=== PATIENT | female | born 1960 | race Caucasian/White ===

== ENCOUNTER → 2017-08-24 | Day surgery (SDC) | payer SELFPAY ==
[2017-08-24 07:24] VITALS: BP 121/78; PULSE 84; RESP 18; TEMP 97.8; BMI 34.1
--- NOTE | 2017-08-24 09:20 | PCN ---
PROCEDURE NOTE The patient is a 57-year-old white female who presented for a breast examination related to an abnormal left-sided mammogram. On physical examination of the breast, no supraclavicular, cervical, axillary adenopathy of concern was noted. Multi-positional exam of each breast did not reveal any suspicious masses or nodules of concern. No nipple discharge or changes were noted. The patient on mammogram was noted to have 2 sites of indeterminate microcalcifications in the central upper left middle 1/3 of the breast. The patient was recommended to undergo mammotome core biopsy of the left breast at 2 sites if possible. PROCEDURE: The patient was taken to the mammotome unit and the area of concern in the left breast was identified. The anterior site was first identified and approached via a lateral to medial approach. The needle was driven to the correct coordinates. This was done after the breast had been prepped using Betadine, 1% lidocaine was used to anesthetize the area of concern and a syringe of lidocaine was attached to the biopsy unit and automated delivery of lidocaine as the procedure was performed. The biopsy device was a vacuum-assisted biopsy device. Pre-fire films were obtained as well as post-fire films. The multiple specimens were obtained and radiograph of the specimen revealed the area of microcalcification was present. A secure gema was placed and radiograph revealed that the secure gema was in the appropriate location. Following this, a repeat radiograph of the breast while on the mammotome table did not reveal the second group of microcalcifications. There was some thought that possibly some blushing from the first biopsy small hematoma may be obscuring the area. The site was reviewed with Radiology and the feeling was that the most worrisome site had been sampled and that the second site would be followed conservatively. If the first site were to be of concern, the needle localization would be performed and both sides could be removed. The patient tolerated the procedure in stable condition. Specimen was sent to pathology and the patient will follow up with Dr. Logan in approximately one week. MMODL / IJN: [id number] /
--- NOTE | 2017-08-24 11:25 | MM ---
EXAMINATION TYPE: MG stereo VAD BX LT DATE OF EXAM: 08/24/2017 COMPARISON: NONE CLINICAL HISTORY: Abnormal mammogram TECHNIQUE: Stereotactic guided core biopsy of left breast. FINDINGS: The procedure of stereotactic guided core biopsy was explained to the patient. Benefits, a lternatives, and risks were discussed. An informed consent was then obtained. [facility] was chosen. Short[facility] pathway was chosen. I performed the localizat ion, then surgeon, Dr. Travis Kemp performed the remainder of the procedure. A vacuum assisted biopsy gun was used to obtain multiple core samples. The patient tolerated the procedure well without any immediate complication. The patient was kept in the radiology department for short stay after the procedure and then discharged home in stable condi tion. Targeted calcifications are identified in specimen mammogram. Post biopsy mammogram shows the clip to appear in satisfactory position relative to the targeted area of concern on the preprocedure images. IMPRESSION: SUCCESSFUL, UNCOMPLICATED STEREOTACTIC GUIDED CORE BIOPSY OF AREA OF CONCERN IN THE left BREAST, FULL PATHOLOGY RESULTS TO FOLLOW. The second smaller cluster of calcifications could not be identified f or stereotactic localization on today's exam. Discussed with the referring surgeon. Either 6 month fo llow-up or needle localization could be performed as clinically warranted.
== END ==
LOC: RADMAMWWP 07:03
PROVIDERS: ATTEND Surgery
DX: D05.12 Intraductal carcinoma in situ of left breast (principal); R92.0 Mammographic microcalcification found on diagnostic imaging of breast
CPT/HCPCS: 88305; 88342; 88341; 19081; A4648; J2001

== ENCOUNTER 2017-10-08 17:43 | Inpatient (IN) | payer OTHER ==
[2017-10-08] MEDS ORDERED: ACETAMINOPHEN TAB 500 MG TAB PO STA (18:02)
--- NOTE | 2017-10-08 18:17 | ED ---
General Adult HPI - General Chief complaint: Fever Stated complaint: POST OP FEVER, SWELLING, PAIN Time Seen by Provider: 10/08/17 17:52 Source: patient Mode of arrival: ambulatory Limitations: no limitations - History of Present Illness Initial comments: 57-year-old female patient presented to the emergency department today with complaints of left breast pain, redness, and swelling. Patient underwent left breast lumpectomy with sentinel node biopsy on 09/19/[address] Logan. 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 States that she has not felt well since the procedure, reports feeling general weakness and malaise. She states that she has had intense pain in the left nipple since the surgery, but last evening started to have increased pain to the left side of the breast. She states that she continued feeling unwell today with worsening pain to the breast, states she felt feverish, and was also complaining of what sounds like rigors. She states that after taking a shower she had drainage from the incision site. Patient states upon further inspection she did find that the breast was very inflamed, hard to touch, and draining bloody drainage. She reports taking an ibuprofen for discomfort. Patient denies any recent rash, shortness breath, abdominal pain, nausea, vomiting, diarrhea, constipation, back pain, numbness, tingling, dizziness, hematuria, dysuria, urinary urgency, urinary frequency, headache, visual changes, or any other complaints. - Related Data Home Medications Medication Instructions Recorded Confirmed Doxepin HCl [SINEquan] 150 mg PO HS 08/20/17 10/08/17 HYDROcodone/APAP 10-325MG [[place] 1 tab PO TID 08/20/17 10/08/17 10-325] ALPRAZolam [Xanax] 0.25 mg PO BID PRN 09/13/17 10/08/17 Ibuprofen [Motrin] 800 mg PO TID PRN 10/08/17 10/08/17 Allergies Allergy/AdvReac Type Severity Reaction Status Date / Time No Known Allergies Allergy Verified 10/08/17 18:04 Review of Systems ROS Statement: Those systems with pertinent positive or pertinent negative responses have been documented in the HPI. ROS Other: All systems not noted in ROS Statement are negative. Past Medical History Past Medical History: Cancer, Fibromyalgia, Osteoarthritis (OA), Skin Disorder Additional Past Medical History / Comment(s): psoriasis; insomnia History of Any Multi-Drug Resistant Organisms: None Reported Past Surgical History: Breast Surgery, Section, Orthopedic Surgery Additional Past Surgical History / Comment(s): Gastric sleeve; colonoscopy; D&C ; plantar fasciitis surg. Past Anesthesia/Blood Transfusion Reactions: Motion Sickness Past Psychological History: Anxiety Smoking Status: Former smoker Past Alcohol Use History: None Reported Past Drug Use History: None Reported - Past Family History Father Family Medical History: Cancer Brother(s) Family Medical History: Cancer General Exam Limitations: no limitations General appearance: alert, in no apparent distress, other (Social well-developed , well-nourished adult female patient in no acute distress. Vital signs upon presentation were to rupture 101.1F oral, pulse 116, respirations 18, blood pressure 118/69, pulse ox 95% on room air.) Eye exam: Present: normal appearance, PERRL, EOMI. Absent: scleral icterus, conjunctival injection, periorbital swelling ENT exam: Present: normal exam, normal oropharynx, mucous membranes moist, TM's normal bilaterally Neck exam: Present: normal inspection. Absent: tenderness, meningismus, lymphadenopathy Respiratory exam: Present: normal lung sounds bilaterally. Absent: respiratory distress, wheezes, rales, rhonchi, stridor Cardiovascular Exam: Present: normal rhythm, tachycardia, normal heart sounds. Absent: systolic murmur, diastolic murmur, rubs, gallop, clicks GI/Abdominal exam: Present: soft, normal bowel sounds. Absent: distended, tenderness, guarding, rebound, rigid Back exam: Present: normal inspection Neurological exam: Present: alert, oriented X3, CN II-XII intact Psychiatric exam: Present: normal affect, normal mood Skin exam: Present: warm, dry, intact, normal color. Absent: rash Expanded 1 - Left breast exhibits a large area of erythema, induration, and swelling at the 3 O'clock position. Evidence of healed surgical incision sites, however there are 2 areas of blackened tissue. The inferior area is draining clear yellow fluid. There is no evidence of axillary lymphadenopathy. Course Vital Signs 10/08/17 10/08/17 10/08/17 17:44 18:14 18:15 Temperature 100.8 F H 101.1 F H Pulse Rate 116 H Pulse Rate [ 94 Right Pulse Oximetery] Respiratory 18 18 Rate Blood Pressure 118/69 Blood Pressure 124/70 [Right Arm] O2 Sat by Pulse 95 99 Oximetry 10/08/17 10/08/17 10/08/17 18:30 18:45 19:12 Temperature Pulse Rate 101 H Pulse Rate [ 96 101 H Right Pulse Oximetery] Respiratory 18 18 18 Rate Blood Pressure 124/73 Blood Pressure 120/72 126/76 [Right Arm] O2 Sat by Pulse 98 99 95 Oximetry 10/08/17 10/08/17 10/08/17 19:20 19:27 20:05 Temperature 98.3 F Pulse Rate Pulse Rate [ 102 H 94 Right Pulse Oximetery] Respiratory 18 16 Rate Blood Pressure Blood Pressure 120/72 106/60 [Right Arm] O2 Sat by Pulse 95 94 L Oximetry Medical Decision Making - Medical Decision Making 57-year-old female patient presented to the emergency department today for evaluation of left breast swelling, pain, and drainage. Patient is status post left breast lumpectomy on 09/19/[address] Logan. Physical examination did reveal erythema, induration, and drainage to the left breast around the 3 O' Clock position. Patient was febrile and tachycardic upon presentation. Labs were reviewed and did show an elevated WBC count at 19.5, Neutrophils 17.4, BUN : 25, Creatinine: 1.40. Urinalysis did show cloudy appearance with 1+ protein, trace ketones, 1+ bilirubin, large leukocyte esterase, 25 white blood cells, 7 squamous epithelial cells, 25 hyaline casts, rare urine mucus. Influenza testing was negative. We did obtain a chest x-ray which was clear for any pulmonary infiltrates. Ultrasound of the left breast did show a large fluid collection measuring approximately 11 cm x 2.[address] Toussaint was in to evaluate the patient. He did speak to Dr. Cook who agrees to admit patient to her service. We will start the patient on Rocephin and vancomycin. We will provide pain management for her. All results have been discussed with the patient and she agrees with this plan. - Lab Data Result diagrams: 10/08/17 18:30 10/08/17 18:30 Lab Results 10/08/17 10/08/17 10/08/17 Range/Units 18:30 18:30 18:30 WBC 19.5 H (3.8-10.6) k/uL RBC 4.34 (3.80-5.40) m/uL Hgb 11.4 (11.4-16.0) gm/dL Hct 35.2 (34.0-46.0) % MCV 81.0 (80.0-100.0) fL MCH 26.3 (25.0-35.0) pg MCHC 32.5 (31.0-37.0) g/dL RDW 16.3 H (11.5-15.5) % Plt Count 332 (150-450) k/uL Neutrophils % 89 % Lymphocytes % 5 % Monocytes % 4 % Eosinophils % 0 % Basophils % 0 % Neutrophils # 17.4 H (1.3-7.7) k/uL Lymphocytes # 1.0 (1.0-4.8) k/uL Monocytes # 0.8 (0-1.0) k/uL Eosinophils # 0.0 (0-0.7) k/uL Basophils # 0.0 (0-0.2) k/uL Anisocytosis Slight PT (9.0-12.0) sec INR (<1.2) APTT (22.0-30.0) sec Sodium 141 (137-145) mmol/L Potassium 4.0 (3.5-5.1) mmol/L Chloride 107 (98-107) mmol/L Carbon Dioxide 24 (22-30) mmol/L Anion Gap 10 mmol/L BUN 25 H (7-17) mg/dL Creatinine 1.40 H (0.52-1.04) mg/dL Est GFR (MDRD) Af Amer 47 (>60 ml/min/1.73 sqM) Est GFR (MDRD) Non-Af 39 (>60 ml/min/1.73 sqM) Glucose 133 H (74-99) mg/dL Plasma Lactic Acid Enrique 0.9 (0.7-2.0) mmol/L Calcium 9.5 (8.4-10.2) mg/dL Total Bilirubin 0.6 (0.2-1.3) mg/dL AST 21 (14-36) U/L ALT 38 (9-52) U/L Alkaline Phosphatase 71 (38-126) U/L Total Protein 6.1 L (6.3-8.2) g/dL Albumin 3.6 (3.5-5.0) g/dL Urine Color Urine Appearance (Clear) Urine pH (5.0-8.0) Ur Specific [place] (1.001-1.035) Urine Protein (Negative) Urine Glucose (UA) (Negative) Urine Ketones (Negative) Urine Blood (Negative) Urine Nitrite (Negative) Urine Bilirubin (Negative) Urine Urobilinogen (<2.0) mg/dL Ur Leukocyte Esterase (Negative) Urine WBC (0-5) /hpf Ur Squamous Epith Cells (0-4) /hpf Hyaline Casts (0-2) /lpf Urine Mucus (None) /hpf Influenza Type A RNA (Not Detectd) Influenza Type B (PCR) (Not Detectd) 10/08/17 10/08/17 10/08/17 Range/Units 18:30 18:30 19:50 WBC (3.8-10.6) k/uL RBC (3.80-5.40) m/uL Hgb (11.4-16.0) gm/dL Hct (34.0-46.0) % MCV (80.0-100.0) fL MCH (25.0-35.0) pg MCHC (31.0-37.0) g/dL RDW (11.5-15.5) % Plt Count (150-450) k/uL Neutrophils % % Lymphocytes % % Monocytes % % Eosinophils % % Basophils % % Neutrophils # (1.3-7.7) k/uL Lymphocytes # (1.0-4.8) k/uL Monocytes # (0-1.0) k/uL Eosinophils # (0-0.7) k/uL Basophils # (0-0.2) k/uL Anisocytosis PT 10.7 (9.0-12.0) sec INR 1.1 (<1.2) APTT 22.8 (22.0-30.0) sec Sodium (137-145) mmol/L Potassium (3.5-5.1) mmol/L Chloride (98-107) mmol/L Carbon Dioxide (22-30) mmol/L Anion Gap mmol/L BUN (7-17) mg/dL Creatinine (0.52-1.04) mg/dL Est GFR (MDRD) Af Amer (>60 ml/min/1.73 sqM) Est GFR (MDRD) Non-Af (>60 ml/min/1.73 sqM) Glucose (74-99) mg/dL Plasma Lactic Acid Enrique (0.7-2.0) mmol/L Calcium (8.4-10.2) mg/dL Total Bilirubin (0.2-1.3) mg/dL AST (14-36) U/L ALT (9-52) U/L Alkaline Phosphatase (38-126) U/L Total Protein (6.3-8.2) g/dL Albumin (3.5-5.0) g/dL Urine Color Yellow Urine Appearance Cloudy H (Clear) Urine pH 5.5 (5.0-8.0) Ur Specific [place] 1.026 (1.001-1.035) Urine Protein 1+ H (Negative) Urine Glucose (UA) Negative (Negative) Urine Ketones Trace H (Negative) Urine Blood Negative (Negative) Urine Nitrite Negative (Negative) Urine Bilirubin 1+ H (Negative) Urine Urobilinogen 2.0 (<2.0) mg/dL Ur Leukocyte Esterase Large H (Negative) Urine WBC 25 H (0-5) /hpf Ur Squamous Epith Cells 7 H (0-4) /hpf Hyaline Casts 25 H (0-2) /lpf Urine Mucus Rare H (None) /hpf Influenza Type A RNA Not Detected (Not Detectd) Influenza Type B (PCR) Not Detected (Not Detectd) Disposition Clinical Impression: Left breast abscess Disposition: ADMITTED IP TO THIS HOSP Condition: Serious Referrals: Bill Mayo MD [Primary Care Provider] - 1-2 days Decision to Admit Reason: Admit from EC Decision Date: 10/08/17 Decision Time: 20:32
[2017-10-08] MEDS: HYDROmorphone 1 MG/ML 1 ML SYRINGE IVP STA (18:33)
[2017-10-08 18:49] LABS: Anisocytosis Slight; Basophils % (A) 0 %; Eosinophils % (A) 0 %; HCT 35.2 % (34.0-46.0); HGB 11.4 gm/dL (11.4-16.0); Lymphocytes % (A) 5 %; MCH 26.3 pg (25.0-35.0); MCHC 32.5 g/dL (31.0-37.0); Mean Platelet Volume 7.6; Monocytes # (A) 0.8 k/uL (0-1.0); Monocytes % (A) 4 %; Neutrophils # (A) 17.4 k/uL (1.3-7.7); Neutrophils % (A) 89 %; Platelet Count 332 k/uL (150-450); RBC 4.34 m/uL (3.80-5.40); RDW 16.3 % (11.5-15.5); WBC 19.5 k/uL (3.8-10.6)
[2017-10-08 18:58] LABS: Albumin 3.6 g/dL (3.5-5.0); Calcium 9.5 mg/dL (8.4-10.2); INR 1.1 (<1.2); Partial Thromboplastin Time 22.8 sec (22.0-30.0); Prothrombin Time 10.7 sec (9.0-12.0); Total Bilirubin 0.6 mg/dL (0.2-1.3); Total Protein 6.1 g/dL (6.3-8.2)
--- NOTE | 2017-10-08 18:59 | USB ---
EXAMINATION TYPE: US breast limited LT DATE OF EXAM: 10/08/2017 COMPARISON: NONE CLINICAL HISTORY: Pain, erythema, swelling post surgery. Pt states fever, red, firm, painful left lilli ast upper/outer quadrant post needle loc, lumpectomy on 09/19/17 Fluid collection left breast (12:00-3:00)= 11.3 x 2.9 cm IMPRESSION: Large irregular fluid collection is demonstrated. Possibilities include hematoma seroma or abscess.
--- NOTE | 2017-10-08 20:13 | XR ---
EXAMINATION TYPE: XR chest 2V DATE OF EXAM: 10/08/2017 COMPARISON: None HISTORY: Chest pain TECHNIQUE: Frontal and lateral views of the chest are obtained. FINDINGS: Heart and mediastinum are normal. Lungs are clear. There are clips over the left breast. T here are chest leads. Bony thorax is intact. IMPRESSION: Normal chest
[2017-10-08] MEDS ORDERED: ONDANSETRON 4 MG/2 ML VIAL IVP PRN (20:16)
[2017-10-08] MEDS ORDERED: ACETAMINOPHEN TAB 325 MG TAB PO PRN (20:16)
[2017-10-08] MEDS ORDERED: NALOXONE 0.4 MG/ML 1 ML VIAL IV PRN (20:16)
[2017-10-08] MEDS ORDERED: VANCOMYCIN IV PER PHARMACY 1 EACH MISC MISCELLANE PRN (20:21)
[2017-10-08 20:24] LABS: Appearance,Urine Cloudy (Clear); Bilirubin,Urine 1+ (Negative); Blood,Urine Negative (Negative); Color,Urine Yellow; Glucose,Urine (UA) Negative (Negative); Hyaline Casts,Urine 25 /lpf (0-2); Ketones,Urine Trace (Negative); Leukocyte Esterase,Urine Large (Negative); Mucus,Urine Rare /hpf; Nitrite,Urine Negative (Negative); PH, Urine 5.5 (5.0-8.0); Protein,Urine 1+ (Negative); Specific Gravity,Urine 1.026 (1.001-1.035); Squamous Epithelial Cell,Urine 7 /hpf (0-4); WBC,Urine 25 /hpf (0-5)
[2017-10-08] MEDS ORDERED: cefTRIAXone IN SWFI 1,000 MG/10 ML SYRINGE IVP ONE (20:30)
[2017-10-08] MEDS ORDERED: VANCOMYCIN 1,500 MG in SODIUM CHLORIDE 0.9% 250 ML IVPB ONE (20:45)
[2017-10-08] MEDS: SODIUM CHLORIDE 0.9% 1,000 ML IV SCH (20:49)
[2017-10-08 22:21] VITALS: BMI 34.6
[2017-10-08] MEDS: HYDROmorphone 1 MG/ML 1 ML SYRINGE IVP PRN (22:29)
[2017-10-09] MEDS: HYDROmorphone 1 MG/ML 1 ML SYRINGE IVP PRN ×3 (03:36→11:01)
[2017-10-09] MEDS: SODIUM CHLORIDE 0.9% 1,000 ML IV SCH ×2 (08:06→17:29)
[2017-10-09] MEDS: cefTRIAXone IN SWFI 1,000 MG/10 ML SYRINGE IVP SCH (08:22)
[2017-10-09 08:56] LABS: Basophils % (A) 0 %; Eosinophils # (A) 0.3 k/uL (0-0.7); Eosinophils % (A) 2 %; HGB 10.3 gm/dL (11.4-16.0); Lymphocytes % (A) 7 %; MCH 26.1 pg (25.0-35.0); MCHC 31.1 g/dL (31.0-37.0); MCV 83.7 fL (80.0-100.0); Mean Platelet Volume 6.7; Monocytes # (A) 0.6 k/uL (0-1.0); Monocytes % (A) 4 %; Neutrophils # (A) 11.3 k/uL (1.3-7.7); Neutrophils % (A) 85 %; Platelet Count 291 k/uL (150-450); RBC 3.95 m/uL (3.80-5.40); WBC 13.3 k/uL (3.8-10.6)
[2017-10-09] MEDS ORDERED: VANCOMYCIN 1,500 MG in SODIUM CHLORIDE 0.9% 250 ML IVPB SCH (09:00)
[2017-10-09 09:17] LABS: Anion Gap 6 mmol/L; Blood Urea Nitrogen 21 mg/dL (7-17); Calcium 9.3 mg/dL (8.4-10.2); Carbon Dioxide 28 mmol/L (22-30); Chloride 108 mmol/L (98-107); Glucose 102 mg/dL (74-99); Potassium 4.2 mmol/L (3.5-5.1); Sodium 142 mmol/L (137-145)
--- NOTE | 2017-10-09 09:40 | P.GSHP ---
History of Present Illness H&P Date: 10/09/17 Chief Complaint: Breast abscess CHIEF COMPLAINT: Left breast abscess HISTORY OF PRESENT ILLNESS: The patient is a 57-year-old female who presents with fevers, rigors, swelling along the left breast status post left breast biopsy 09/19/2017. She has increased pain and tenderness along the left breast including swelling. Her temperatures were over 101 upon presentation to the ER. She still reports left breast discomfort including redness. PAST MEDICAL HISTORY: Please see list. PAST SURGICAL HISTORY: Please see list. MEDICATIONS: Please see list. ALLERGIES: Please see list. SOCIAL HISTORY: No illicit drug use FAMILY HISTORY: No reports of Crohn disease or ulcerative colitis. REVIEW OF ORGAN SYSTEMS: CONSTITUTIONAL: Has fever or chills. Denies recent weight loss or weight gain. HEENT: Denies any trouble with vision, hearing or nosebleeds. No difficulty swallowing. LYMPHATIC: The patient denies any lumps and bumps around the neck. ENDOCRINE: Denies any thyroid disorders. Denies any blood sugar glucose intolerance. RESPIRATORY: Denies pneumonia. Denies any troubles with breathing or dyspnea on exertion. CARDIOVASCULAR: Denies any chest pain, palpitations, or recent heart attacks. GASTROINTESTINAL: Denies heart burn, constipation or bright red blood per rectum. GENITOURINARY: Denies any blood in urine or increased urinary frequency. MUSCULOSKELETAL: Has back pain, stiffness, joint arthritis. NEUROLOGIC: Denies any numbness or tingling along the distal extremities. No seizure disorders or headaches. PSYCHIATRIC: Denies depression or suidical ideation. She has fibromyalgia. HEMATOLOGIC: Denies any abnormal bleeding or bruising. BREASTS: Has breast lumps, pain. PHYSICAL EXAM: GENERAL: Well developed and in no acute distress. Pleasant. HEENT: No sclera icterus. Extraocular movements grossly intact. Moist buccal mucosa. Head is atraumatic, normocephalic. Hears conversational speech. No nasal drainage. NECK: Supple without lymphadenopathy. No JV distention. CHEST: Non-labored respirations and equal bilateral excursions. CARDIOVASCULAR: Regular rate and rhythm. Palpable 2+ radial pulses. ABDOMEN: Soft, nontender. Nondistended. MUSCULOSKELETAL: No clubbing, cyanosis or edema. NEUROLOGIC: No focal or lateralizing signs. PSYCH: Appropriate affect. Alert and oriented to person, place and time. BREAST: Moderate swelling and erythema along the left breast. 2 cm necrosis along the left breast at 4 o'clock position. SKIN: Good skin turgor. Well perfused. ASSESSMENT: 1. Left breast abscess. 2. Sepsis. PLAN: 1. Sepsis protocol. 2. Recommend drainage of left breast abscess. 3. Broad-spectrum antibiotics. 4. Infectious disease consultation. 5. Inpatient admission for sepsis. Past Medical History Past Medical History: Cancer, Fibromyalgia, Osteoarthritis (OA), Skin Disorder Additional Past Medical History / Comment(s): psoriasis; insomnia History of Any Multi-Drug Resistant Organisms: None Reported Past Surgical History: Breast Surgery, Section, Orthopedic Surgery Additional Past Surgical History / Comment(s): Gastric sleeve; colonoscopy; D&C ; plantar fasciitis surg. Past Anesthesia/Blood Transfusion Reactions: Motion Sickness Past Psychological History: Anxiety Smoking Status: Former smoker Past Alcohol Use History: None Reported Additional Past Alcohol Use History / Comment(s): quit smoking in 1994; smoked 1ppd Past Drug Use History: None Reported - Past Family History Father Family Medical History: Cancer Brother(s) Family Medical History: Cancer Medications and Allergies Home Medications Medication Instructions Recorded Confirmed Type Doxepin HCl [SINEquan] 150 mg PO HS 08/20/17 10/08/17 History HYDROcodone/APAP 10-325MG [[place] 1 tab PO TID 08/20/17 10/08/17 History 10-325] ALPRAZolam [Xanax] 0.25 mg PO BID PRN 09/13/17 10/08/17 History Ibuprofen [Motrin] 800 mg PO TID PRN 10/08/17 10/08/17 History Allergies Allergy/AdvReac Type Severity Reaction Status Date / Time No Known Allergies Allergy Verified 10/08/17 18:04 Surgical - Exam Vital Signs Temp Pulse Resp BP Pulse Ox 100.8 F H 116 H 18 118/69 95 10/08/17 17:44 10/08/17 17:44 10/08/17 17:44 10/08/17 17:44 10/08/17 17:44 Results - Labs 10/09/17 08:25 10/09/17 08:25 Abnormal Lab Results - Last 24 Hours (Table) 10/08/17 10/08/17 10/08/17 Range/Units 18:30 18:30 19:50 WBC 19.5 H (3.8-10.6) k/uL Hgb (11.4-16.0) gm/dL Hct (34.0-46.0) % RDW 16.3 H (11.5-15.5) % Neutrophils # 17.4 H (1.3-7.7) k/uL Chloride (98-107) mmol/L BUN 25 H (7-17) mg/dL Creatinine 1.40 H (0.52-1.04) mg/dL Glucose 133 H (74-99) mg/dL Total Protein 6.1 L (6.3-8.2) g/dL Urine Appearance Cloudy H (Clear) Urine Protein 1+ H (Negative) Urine Ketones Trace H (Negative) Urine Bilirubin 1+ H (Negative) Ur Leukocyte Esterase Large H (Negative) Urine WBC 25 H (0-5) /hpf Ur Squamous Epith Cells 7 H (0-4) /hpf Hyaline Casts 25 H (0-2) /lpf Urine Mucus Rare H (None) /hpf 10/09/17 10/09/17 Range/Units 08:25 08:25 WBC 13.3 H (3.8-10.6) k/uL Hgb 10.3 L (11.4-16.0) gm/dL Hct 33.0 L (34.0-46.0) % RDW (11.5-15.5) % Neutrophils # 11.3 H (1.3-7.7) k/uL Chloride 108 H (98-107) mmol/L BUN 21 H (7-17) mg/dL Creatinine (0.52-1.04) mg/dL Glucose 102 H (74-99) mg/dL Total Protein (6.3-8.2) g/dL Urine Appearance (Clear) Urine Protein (Negative) Urine Ketones (Negative) Urine Bilirubin (Negative) Ur Leukocyte Esterase (Negative) Urine WBC (0-5) /hpf Ur Squamous Epith Cells (0-4) /hpf Hyaline Casts (0-2) /lpf Urine Mucus (None) /hpf Microbiology - Last 24 Hours (Table) 10/08/17 18:30 Gram Stain - Preliminary Breast - Left Wound Culture - Preliminary 10/08/17 19:50 Urine Culture - Preliminary Urine,Voided Diabetes panel 10/08/17 10/09/17 Range/Units 18:30 08:25 Sodium 141 142 (137-145) mmol/L Potassium 4.0 4.2 (3.5-5.1) mmol/L Chloride 107 108 H (98-107) mmol/L Carbon Dioxide 24 28 (22-30) mmol/L BUN 25 H 21 H (7-17) mg/dL Creatinine 1.40 H 0.83 (0.52-1.04) mg/dL Glucose 133 H 102 H (74-99) mg/dL Calcium 9.5 9.3 (8.4-10.2) mg/dL AST 21 (14-36) U/L ALT 38 (9-52) U/L Alkaline Phosphatase 71 (38-126) U/L Total Protein 6.1 L (6.3-8.2) g/dL Albumin 3.6 (3.5-5.0) g/dL Calcium panel 10/08/17 10/09/17 Range/Units 18:30 08:25 Calcium 9.5 9.3 (8.4-10.2) mg/dL Albumin 3.6 (3.5-5.0) g/dL Pituitary panel 10/08/17 10/09/17 Range/Units 18:30 08:25 Sodium 141 142 (137-145) mmol/L Potassium 4.0 4.2 (3.5-5.1) mmol/L Chloride 107 108 H (98-107) mmol/L Carbon Dioxide 24 28 (22-30) mmol/L BUN 25 H 21 H (7-17) mg/dL Creatinine 1.40 H 0.83 (0.52-1.04) mg/dL Glucose 133 H 102 H (74-99) mg/dL Calcium 9.5 9.3 (8.4-10.2) mg/dL Adrenal panel 10/08/17 10/09/17 Range/Units 18:30 08:25 Sodium 141 142 (137-145) mmol/L Potassium 4.0 4.2 (3.5-5.1) mmol/L Chloride 107 108 H (98-107) mmol/L Carbon Dioxide 24 28 (22-30) mmol/L BUN 25 H 21 H (7-17) mg/dL Creatinine 1.40 H 0.83 (0.52-1.04) mg/dL Glucose 133 H 102 H (74-99) mg/dL Calcium 9.5 9.3 (8.4-10.2) mg/dL Total Bilirubin 0.6 (0.2-1.3) mg/dL AST 21 (14-36) U/L ALT 38 (9-52) U/L Alkaline Phosphatase 71 (38-126) U/L Total Protein 6.1 L (6.3-8.2) g/dL Albumin 3.6 (3.5-5.0) g/dL
--- NOTE | 2017-10-09 13:15 | P.CONS ---
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 Patient states that since she had the procedure done, her breasts has never stopped hurting. It feels like a toothache that's constant. She has continued to use ice packs and heat without improvement. 2 nights ago she was having fever and rigors. He then noticed a hard lump and that her left breast was larger yesterday. She states she took a bath and she put her robe on and her left breast started leaking all over the floor. She came into [facility] emergency center for evaluation where she was found to have signs of sepsis with fever, tachycardia. Influenza testing was negative. She had an elevated creatinine with acute kidney injury initially 1.4 and repeat of 0.8. Urinalysis was cloudy with leukoesterase large and any BCs 25, squamous cells 7. Patient denies any urinary symptoms. Wound culture was obtained showing gram-positive cocci and urine culture is in process. She underwent a breast ultrasound that showed a large irregular fluid collection could be hematoma, seroma or abscess. Chest x-ray showed no acute findings. She was started on ceftriaxone and vancomycin and admitted to the hospital on the care of Dr. Cook and she is scheduled for her initial for left breast abscess this afternoon. Patient states that the fever is still coming and going and she continues to have significant pain and swelling as well as drainage from the left breast. Review of Systems All systems: negative Constitutional: Reports chills, Reports fatigue, Reports fever, Reports malaise , Denies night sweats Eyes: denies blurred vision, denies pain Ears, nose, mouth and throat: Reports headache, Denies dental pain, Denies mouth pain, Denies sore throat, Denies vertigo Breasts: left: masses, skin changes, swelling Cardiovascular: Denies chest pain, Denies decreased exercise tolerance, Denies dyspnea on exertion, Denies edema, Denies leg edema, Denies lightheadedness, Denies shortness of breath, Denies syncope Respiratory: Denies cough, Denies cough with sputum, Denies dyspnea, Denies excessive sputum, Denies hemoptysis, Denies home oxygen, Denies wheezing Gastrointestinal: Denies abdominal pain, Denies diarrhea, Denies nausea, Denies vomiting Genitourinary: Denies dysuria, Denies hematuria, Denies urgency, Denies urinary frequency Musculoskeletal: Denies myalgias Integumentary: Reports wounds, Denies pruritus, Denies rash Neurological: Denies numbness, Denies weakness Psychiatric: Denies anxiety, Denies depression Endocrine: Denies fatigue, Denies weight change Past Medical History Past Medical History: Cancer, Fibromyalgia, Osteoarthritis (OA), Skin Disorder Additional Past Medical History / Comment(s): psoriasis; insomnia History of Any Multi-Drug Resistant Organisms: None Reported Past Surgical History: Breast Surgery, Section, Orthopedic Surgery Additional Past Surgical History / Comment(s): Gastric sleeve; colonoscopy; D&C ; plantar fasciitis surg. Past Anesthesia/Blood Transfusion Reactions: Motion Sickness Past Psychological History: Anxiety Smoking Status: Former smoker Past Alcohol Use History: None Reported Additional Past Alcohol Use History / Comment(s): quit smoking in 1994; smoked 1ppd or 30 years. She denies any medical marijuana, marijuana, street drug or alcohol use. 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 Past Drug Use History: None Reported - Past Family History Father Family Medical History: Cancer Brother(s) Family Medical History: Cancer Medications and Allergies Home Medications Medication Instructions Recorded Confirmed Type Doxepin HCl [SINEquan] 150 mg PO HS 08/20/17 10/08/17 History HYDROcodone/APAP 10-325MG [Lamont 1 tab PO TID 08/20/17 10/08/17 History 10-325] RX: ALPRAZolam [Xanax] 0.25 mg PO BID PRN 09/13/17 10/08/17 History Ibuprofen [Motrin] 800 mg PO TID PRN 10/08/17 10/08/17 History Allergies Allergy/AdvReac Type Severity Reaction Status Date / Time No Known Allergies Allergy Verified 10/08/17 18:04 Physical Exam Vitals: Vital Signs Temp Pulse Pulse Resp BP BP Pulse Ox 10/09/17 11:42 99.6 F 112 H 19 119/77 90 L 10/09/17 08:53 93 L 10/09/17 07:45 99.5 F 105 H 19 150/82 93 L 10/09/17 03:30 98.3 F 88 18 140/82 10/08/17 23:00 18 10/08/17 22:10 98.3 F 90 18 126/72 99 10/08/17 20:50 97.7 F 88 16 133/78 96 10/08/17 20:05 94 16 106/60 94 L 10/08/17 19:27 98.3 F 10/08/17 19:20 102 H 18 120/72 95 10/08/17 19:12 101 H 18 124/73 95 10/08/17 18:45 101 H 18 126/76 99 10/08/17 18:30 96 18 120/72 98 10/08/17 18:15 94 18 124/70 99 10/08/17 18:14 101.1 F H 10/08/17 17:44 100.8 F H 116 H 18 118/69 95 Intake and Output 10/08/17 10/09/17 10/09/17 22:59 06:59 14:59 Intake Total 300 Balance 300 Intake: Oral 300 Other: Voiding Method Toilet Toilet # Voids 1 1 Weight 94.34 kg Gen: This is a 57-year-old obese female. She is sitting up in bed and appears to be slightly uncomfortable. She is noted to have pain with movement. HEENT: Head is atraumatic, normocephalic. Pupils equal, round. Sclerae is anicteric. Junk developing. Mucous membranes of the mouth are dry. NECK: Supple. No JVD. No lymphadenopathy. No thyromegaly. LUNGS: Clear to auscultation. No wheezes or rhonchi. No intercostal retractions. HEART: Regular rate and rhythm. No murmur. BREASTS: Left breast has wound at 4 o'clock position with necrosis. There is surrounding erythema and edema. ABDOMEN: Soft. Bowel sounds are present. No masses. No tenderness. EXTREMITIES: No pedal edema. No calf tenderness. NEUROLOGICAL: Patient is awake, alert and oriented x3. Cranial nerves 2 through 12 are grossly intact. Results Results: Laboratory Results WBC 13.3 k/uL (3.8-10.6) H 10/09/17 08:25 RBC 3.95 m/uL (3.80-5.40) 10/09/17 08:25 Hgb 10.3 gm/dL (11.4-16.0) L 10/09/17 08:25 Hct 33.0 % (34.0-46.0) L 10/09/17 08:25 MCV 83.7 fL (80.0-100.0) 10/09/17 08:25 MCH 26.1 pg (25.0-35.0) 10/09/17 08:25 MCHC 31.1 g/dL (31.0-37.0) 10/09/17 08:25 RDW 15.0 % (11.5-15.5) 10/09/17 08:25 Plt Count 291 k/uL (150-450) 10/09/17 08:25 Neutrophils % 85 % 10/09/17 08:25 Lymphocytes % 7 % 10/09/17 08:25 Monocytes % 4 % 10/09/17 08:25 Eosinophils % 2 % 10/09/17 08:25 Basophils % 0 % 10/09/17 08:25 Neutrophils # 11.3 k/uL (1.3-7.7) H 10/09/17 08:25 Lymphocytes # 1.0 k/uL (1.0-4.8) 10/09/17 08:25 Monocytes # 0.6 k/uL (0-1.0) 10/09/17 08:25 Eosinophils # 0.3 k/uL (0-0.7) 10/09/17 08:25 Basophils # 0.0 k/uL (0-0.2) 10/09/17 08:25 Anisocytosis Slight 10/08/17 18:30 PT 10.7 sec (9.0-12.0) 10/08/17 18:30 INR 1.1 (<1.2) 10/08/17 18:30 APTT 22.8 sec (22.0-30.0) 10/08/17 18:30 Sodium 142 mmol/L (137-145) 10/09/17 08:25 Potassium 4.2 mmol/L (3.5-5.1) 10/09/17 08:25 Chloride 108 mmol/L (98-107) H 10/09/17 08:25 Carbon Dioxide 28 mmol/L (22-30) 10/09/17 08:25 Anion Gap 6 mmol/L 10/09/17 08:25 BUN 21 mg/dL (7-17) H 10/09/17 08:25 Creatinine 0.83 mg/dL (0.52-1.04) 10/09/17 08:25 Est GFR (MDRD) Af Amer >60 (>60 ml/min/1.73 sqM) 10/09/17 08:25 Est GFR (MDRD) Non-Af >60 (>60 ml/min/1.73 sqM) 10/09/17 08:25 Glucose 102 mg/dL (74-99) H 10/09/17 08:25 Plasma Lactic Acid Enrique 0.7 mmol/L (0.7-2.0) 10/09/17 09:49 Calcium 9.3 mg/dL (8.4-10.2) 10/09/17 08:25 Total Bilirubin 0.6 mg/dL (0.2-1.3) 10/08/17 18:30 AST 21 U/L (14-36) 10/08/17 18:30 ALT 38 U/L (9-52) 10/08/17 18:30 Alkaline Phosphatase 71 U/L (38-126) 10/08/17 18:30 Total Protein 6.1 g/dL (6.3-8.2) L 10/08/17 18:30 Albumin 3.6 g/dL (3.5-5.0) 10/08/17 18:30 Urine Color Yellow 10/08/17 19:50 Urine Appearance Cloudy (Clear) H 10/08/17 19:50 Urine pH 5.5 (5.0-8.0) 10/08/17 19:50 Ur Specific [place] 1.026 (1.001-1.035) 10/08/17 19:50 Urine Protein 1+ (Negative) H 10/08/17 19:50 Urine Glucose (UA) Negative (Negative) 10/08/17 19:50 Urine Ketones Trace (Negative) H 10/08/17 19:50 Urine Blood Negative (Negative) 10/08/17 19:50 Urine Nitrite Negative (Negative) 10/08/17 19:50 Urine Bilirubin 1+ (Negative) H 10/08/17 19:50 Urine Urobilinogen 2.0 mg/dL (<2.0) 10/08/17 19:50 Ur Leukocyte Esterase Large (Negative) H 10/08/17 19:50 Urine WBC 25 /hpf (0-5) H 10/08/17 19:50 Ur Squamous Epith Cells 7 /hpf (0-4) H 10/08/17 19:50 Hyaline Casts 25 /lpf (0-2) H 10/08/17 19:50 Urine Mucus Rare /hpf (None) H 10/08/17 19:50 Influenza Type A RNA Not Detected (Not Detectd) 10/08/17 18:30 Influenza Type B (PCR) Not Detected (Not Detectd) 10/08/17 18:30 CBC & Chem 7: 10/11/17 07:04 10/09/17 08:25 Labs: Abnormal Lab Results - Last 24 Hours (Table) 10/08/17 10/08/17 10/08/17 Range/Units 18:30 18:30 19:50 WBC 19.5 H (3.8-10.6) k/uL Hgb (11.4-16.0) gm/dL Hct (34.0-46.0) % RDW 16.3 H (11.5-15.5) % Neutrophils # 17.4 H (1.3-7.7) k/uL Chloride (98-107) mmol/L BUN 25 H (7-17) mg/dL Creatinine 1.40 H (0.52-1.04) mg/dL Glucose 133 H (74-99) mg/dL Total Protein 6.1 L (6.3-8.2) g/dL Urine Appearance Cloudy H (Clear) Urine Protein 1+ H (Negative) Urine Ketones Trace H (Negative) Urine Bilirubin 1+ H (Negative) Ur Leukocyte Esterase Large H (Negative) Urine WBC 25 H (0-5) /hpf Ur Squamous Epith Cells 7 H (0-4) /hpf Hyaline Casts 25 H (0-2) /lpf Urine Mucus Rare H (None) /hpf 10/09/17 10/09/17 Range/Units 08:25 08:25 WBC 13.3 H (3.8-10.6) k/uL Hgb 10.3 L (11.4-16.0) gm/dL Hct 33.0 L (34.0-46.0) % RDW (11.5-15.5) % Neutrophils # 11.3 H (1.3-7.7) k/uL Chloride 108 H (98-107) mmol/L BUN 21 H (7-17) mg/dL Creatinine (0.52-1.04) mg/dL Glucose 102 H (74-99) mg/dL Total Protein (6.3-8.2) g/dL Urine Appearance (Clear) Urine Protein (Negative) Urine Ketones (Negative) Urine Bilirubin (Negative) Ur Leukocyte Esterase (Negative) Urine WBC (0-5) /hpf Ur Squamous Epith Cells (0-4) /hpf Hyaline Casts (0-2) /lpf Urine Mucus (None) /hpf Microbiology - Last 24 Hours (Table) 10/08/17 18:30 Gram Stain - Preliminary Breast - Left Wound Culture - Preliminary 10/08/17 19:50 Urine Culture - Preliminary Urine,Voided Assessment and Plan Plan: Is a 57-year-old female who presents with a left breast abscess following recent lumpectomy which resulted high-grade ductal cancer in situ. She presents with cellulitis is currently on IV antibiotics the form of ceftriaxone and vancomycin which will be continued. She is scheduled for left breast abscess drainage today. Wound culture is showing gram-positive cocci. Continue supportive care. Further recommendations as patient progresses. The above dictated assessment and findings were discussed with Dr. Valdez. The impression and plan of care have been directed as dictated. Maria L Jose nurse practitioner acting as scribe for Dr. Valdez.
[2017-10-09] MEDS ORDERED: IV FLUID CONTINUATION 600 ML IV ONE (15:23)
[2017-10-09] MEDS ORDERED: SUCCINYLCHOLINE CHLORIDE 100 MG/5 ML SYR IV ONE (16:19)
[2017-10-09] MEDS ORDERED: PROPOFOL 10 MG/ML 20 ML VIAL IV ONE (16:19)
[2017-10-09] MEDS ORDERED: HYDROmorphone (PF) 1 MG/ML ONE (16:19)
[2017-10-09] MEDS ORDERED: LIDOCAINE 1% INJ 10MG/ML (20 ML MDV) ONE (16:19)
[2017-10-09] MEDS ORDERED: fentaNYL (PF) 50 MCG/ML 2 ML AMP ONE (16:19)
[2017-10-09] MEDS ORDERED: MIDAZOLAM 2 MG/2 ML VIAL ONE (16:19)
[2017-10-09] MEDS ORDERED: BUPIVACAINE-EPI 0.5%-1:200,000 10 ML VIAL SQ ONE (16:52)
--- NOTE | 2017-10-09 17:27 | P.PCN ---
Date of Procedure: 10/09/17 Preoperative Diagnosis: Left breast abscess with sepsis Postoperative Diagnosis: Same Procedure(s) Performed: Open drainage of complex left breast abscess 11 x 3 cm at 12 to 3:00, removal of foreign body Anesthesia: JULESA, local Surgeon: Gayatri Kingsley Estimated Blood Loss (ml): 2 Pathology: other (Aerobic and anaerobic cultures and foreign body) Condition: stable Disposition: floor Operative Findings: Removal of spiral foreign body, over 50 mL abscess drained from left breast
[2017-10-09] MEDS ORDERED: HYDROcodone/APAP 5-325MG 1 EACH TAB PO PRN (17:29)
[2017-10-09] MEDS ORDERED: NALOXONE 0.4 MG/ML 1 ML VIAL IV PRN (17:29)
[2017-10-09] MEDS: HYDROmorphone 1 MG/ML 1 ML SYRINGE IVP STA ×2 (17:43→17:56)
[2017-10-09] MEDS ORDERED: LACTATED RINGERS 1,000 ML IV ONE (17:45)
[2017-10-09] MEDS ORDERED: ACETAMINOPHEN IV (For NPO) 1,000 MG in EMPTY BAG 1 BAG IVPB ONE (18:00)
[2017-10-09] MEDS: VANCOMYCIN 1,500 MG in SODIUM CHLORIDE 0.9% 250 ML IVPB SCH (21:51)
[2017-10-09] MEDS: KETOROLAC 30 MG/ML 1 ML VIAL IVP PRN (22:35)
--- NOTE | 2017-10-09 22:44 | P.CON ---
Consult Note - . 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 Patient states that since she had the procedure done, her breasts has never stopped hurting. It feels like a toothache that's constant. She has continued to use ice packs and heat without improvement. 2 nights ago she was having fever and rigors. He then noticed a hard lump and that her left breast was larger yesterday. She states she took a bath and she put her robe on and her left breast started leaking all over the floor. She came into [facility] emergency center for evaluation where she was found to have signs of sepsis with fever, tachycardia. Influenza testing was negative. She had an elevated creatinine with acute kidney injury initially 1.4 and repeat of 0.8. Urinalysis was cloudy with leukoesterase large and any BCs 25, squamous cells 7. Patient denies any urinary symptoms. Wound culture was obtained showing gram-positive cocci and urine culture is in process. She underwent a breast ultrasound that showed a large irregular fluid collection could be hematoma, seroma or abscess. Chest x-ray showed no acute findings. She was started on ceftriaxone and vancomycin and admitted to the hospital on the care of Dr. Cook and she is scheduled for her initial for left breast abscess this afternoon. Patient states that the fever is still coming and going and she continues to have significant pain and swelling as well as drainage from the left breast. Please see the consult note is dictated by nurse practitioner Mrs. Maria L Jose. Patient to have incision and drainage, continue antibiotic therapy while cultures are process. Cultures were direct the need for outpatient intravenous antibiotic therapy. Will need ongoing pain control and wound care as per surgery. I agree with evaluation, assessment and plan as dictated by nurse practitioner Mrs. Maria L Jose.
--- NOTE | 2017-10-10 02:00 | P.OP ---
Date of Procedure: 10/09/17 Description of Procedure: SURGEON: JOSE DESOUZA MD ELECTRONIC INSTALLER: NONE. PREOPERATIVE DIAGNOSES: 1. Preoperative sepsis secondary to complex left breast abscess. 2. Obesity, BMI 34.6. 3. Fibromyalgia. 4. Psoriasis. 5. High-grade ductal carcinoma in situ, left breast POSTOPERATIVE DIAGNOSES: 1. Preoperative sepsis secondary to complex left breast abscess. 2. Obesity, BMI 34.6. 3. Fibromyalgia. 4. Psoriasis. 5. High-grade ductal carcinoma in situ, left breast 6. Foreign body implant, left breast. OPERATION: 1. Open drainage of complex left breast abscess 11 x 3 cm at 12 to 3:00 2. Removal of foreign body from left breast. 3. Mechanical debridement using 2 L of pulse lavage of complex left breast abscess. ANESTHESIA: Gen. with local anesthetic ESTIMATED BLOOD LOSS: 2 mL. SPECIMENS REMOVED: 1. Aerobic, anaerobic culture of the complex left breast abscess. 2. Foreign body, left breast. COMPLICATIONS: None. INDICATIONS: The patient is a 49-year-old female grossly diagnosed with left breast cancer. 3 weeks ago she had a left breast biopsy with an implant. She then presented acutely with rigors, fevers and sepsis fevers including tachycardia from an infected left breast abscess. Despite antibiotics, she had no improvement. Emergent surgical prevention was revised. DESCRIPTION OF PROCEDURE: Patient was brought into the operating room and laid in supine position. After general, the left breast was prepped and draped in a standard sterile fashion. Attention was then brought to the complex left breast abscess. The skin was localized with anesthetic. A curvilinear incision between the 2 to 3-o'clock position was made and deepened into the subcutaneous tissue along the skin tension lines. A hemostat was used to dissect through the subcutaneous tissue whereby the abscess was deep in the subcutaneous pocket. Immediately, an egress of florencia purulence was found and aerobic and anaerobic cultures were obtained. Next suction was used whereby approximately 50 mL of florencia pus was aspirated from the wound. The wound was probed and a spiral foreign body was palpated and extracted as it was involved in the depth of the abscess. Pulse lavage of 2 L normal saline was used for mechanical debridement to the deep subcutaneous pocket. An 8 inch strip of 1-inch iodoform was cut and placed within the bed of the wound. The skin was cleansed and covered with a 4 x 4 gauze followed by 6 inch Medipore tape. The patient was awoken from anesthesia. All sponge and instrument counts were verified correct by surgical supplies sterilizer. The patient was transferred to postanesthesia care unit in stable condition and pain free. FINDINGS: 1. Deep subcutaneous breast tissue complex breast abscess over 50 mL drained. 2. Foreign body along the left breast saturated within the pocket of breast abscess.
[2017-10-10] MEDS: SODIUM CHLORIDE 0.9% 1,000 ML IV SCH ×3 (02:55→23:50)
[2017-10-10 06:45] LABS: Basophils # (A) 0.1 k/uL (0-0.2); Basophils % (A) 0 %; Eosinophils # (A) 0.8 k/uL (0-0.7); Eosinophils % (A) 8 %; HCT 31.4 % (34.0-46.0); HGB 9.6 gm/dL (11.4-16.0); Hypochromasia Slight; Lymphocytes # (A) 1.3 k/uL (1.0-4.8); Lymphocytes % (A) 13 %; MCH 25.8 pg (25.0-35.0); MCHC 30.6 g/dL (31.0-37.0); MCV 84.3 fL (80.0-100.0); Mean Platelet Volume 6.9; Monocytes # (A) 0.4 k/uL (0-1.0); Monocytes % (A) 4 %; Neutrophils # (A) 7.7 k/uL (1.3-7.7); Neutrophils % (A) 74 %; Platelet Count 261 k/uL (150-450); RBC 3.72 m/uL (3.80-5.40); WBC 10.5 k/uL (3.8-10.6)
[2017-10-10] MEDS: KETOROLAC 30 MG/ML 1 ML VIAL IVP PRN ×3 (07:28→21:28)
[2017-10-10] MEDS: cefTRIAXone IN SWFI 1,000 MG/10 ML SYRINGE IVP SCH (09:21)
[2017-10-10] MEDS: VANCOMYCIN 1,500 MG in SODIUM CHLORIDE 0.9% 250 ML IVPB SCH ×2 (09:43→21:31)
--- NOTE | 2017-10-10 11:11 | P.PN ---
<Laura Chery - Last Filed: 10/10/17 10:57> Subjective Progress Note Date: 10/10/17 57-year-old female seen and examined at bedside postop day 1 open drainage of a complex left breast abscess. Currently dressing to surgical site dry with packing in place at surgical site . 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 September 19 underwent left breast lumpectomy with sentinel node biopsy which came back as high-grade ductal cancer in situ and negative lymph node infectious diseases participating in the plan of care the preliminary wound culture presumptive staph blood and urine culture no growth Objective - Vital Signs Vital signs: Vital Signs Temp 98.1 F 10/10/17 09:30 Pulse 86 10/10/17 10:10 Resp 16 10/10/17 09:30 BP 135/76 10/10/17 09:30 Pulse Ox 96 10/10/17 10:10 Intake & Output 10/09/17 10/10/17 10/10/17 18:59 06:59 18:59 Intake Total 850 Output Total 5 Balance 845 Intake: IV 850 Output: Estimated Blood Loss 5 Other: Voiding Method Toilet # Voids 1 1 # Emeses 10 - Exam Physical exam 57-year-old female resting comfortably in bed states pain medication effective for pain control Lungs adequate air movement bilaterally on room air no cough Heart S1-S2 audible regular Chest support bra on packing to the left breast surgical site in place dressings dry Abdomen soft reports no nausea vomiting Extremities no edema to the bilateral lower extremities - Labs CBC & Chem 7: 10/10/17 06:22 10/09/17 08:25 Labs: Abnormal Lab Results - Last 24 Hours (Table) 10/10/17 Range/Units 06:22 RBC 3.72 L (3.80-5.40) m/uL Hgb 9.6 L (11.4-16.0) gm/dL Hct 31.4 L (34.0-46.0) % MCHC 30.6 L (31.0-37.0) g/dL Eosinophils # 0.8 H (0-0.7) k/uL Microbiology - Last 24 Hours (Table) 10/09/17 17:09 Gram Stain - Preliminary Breast - Left Wound Culture - Preliminary 10/09/17 17:09 Anaerobic Culture - Preliminary Breast - Left 10/08/17 18:30 Blood Culture - Preliminary Blood No Growth after 24 hours 10/08/17 18:30 Gram Stain - Preliminary Breast - Left Wound Culture - Preliminary Presumptive Staph aureus 10/08/17 19:50 Urine Culture - Final Urine,Voided Assessment and Plan Assessment: Impression Present on admission sepsis likely due to left breast abscess Open drainage of a complex left breast abscess with removal of foreign body done on October 09 Obesity BMI 34.6 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 Laura Chery nurse practitioner acting as scribe for signing physician. <Gayatri Kingsley - Last Filed: 10/10/17 20:15> Objective - Vital Signs Vital signs: Vital Signs Temp 98.1 F 10/10/17 16:14 Pulse 80 10/10/17 16:14 Resp 20 10/10/17 16:14 BP 161/76 10/10/17 16:14 Pulse Ox 96 10/10/17 16:14 Intake & Output 10/10/17 10/10/17 10/11/17 06:59 18:59 06:59 Intake Total 240 Balance 240 Intake: Oral 240 Other: Voiding Method Toilet # Voids 1 1 - Exam GENERAL: Well developed and in no acute distress. Pleasant. HEENT: No sclera icterus. Extraocular movements grossly intact. Moist buccal mucosa. Head is atraumatic, normocephalic. Hears conversational speech. No nasal drainage. NECK: Supple without lymphadenopathy. No JV distention. CHEST: Non-labored respirations and equal bilateral excursions. CARDIOVASCULAR: Regular rate and rhythm. Palpable 2+ radial pulses. ABDOMEN: Soft, nontender. Nondistended. MUSCULOSKELETAL: No clubbing, cyanosis or edema. NEUROLOGIC: No focal or lateralizing signs. PSYCH: Appropriate affect. Alert and oriented to person, place and time. BREAST: Packing of iodoform discontinued and changed at bedside. Packing of 12 inches placed of 1-inch iodoform. A 4 x [address] Decreased erythema and cellulitis of the breast. Seropurulent drainage evacuated. Bra Placed. SKIN: Good skin turgor. Well perfused. - Labs CBC & Chem 7: 10/10/17 06:22 10/09/17 08:25 Labs: Abnormal Lab Results - Last 24 Hours (Table) 10/10/17 Range/Units 06:22 RBC 3.72 L (3.80-5.40) m/uL Hgb 9.6 L (11.4-16.0) gm/dL Hct 31.4 L (34.0-46.0) % MCHC 30.6 L (31.0-37.0) g/dL Eosinophils # 0.8 H (0-0.7) k/uL Microbiology - Last 24 Hours (Table) 10/09/17 17:09 Gram Stain - Preliminary Breast - Left Wound Culture - Preliminary Presumptive Staph aureus 10/08/17 18:30 Gram Stain - Final Breast - Left Wound Culture - Final Staphylococcus aureus 10/09/17 17:09 Foreign Body Culture - Preliminary Other - Other 10/09/17 17:09 Anaerobic Culture - Preliminary Breast - Left 10/08/17 18:30 Blood Culture - Preliminary Blood No Growth after 24 hours 10/08/17 19:50 Urine Culture - Final Urine,Voided Assessment and Plan (1) Cancer of left breast Current Visit: Yes Status: Acute Code(s): C50.912 - MALIGNANT NEOPLASM OF UNSPECIFIED SITE OF LEFT FEMALE BREAST SNOMED Code(s): 307852749 (2) Fibromyalgia Current Visit: Yes Status: Acute Code(s): M79.7 - FIBROMYALGIA SNOMED Code (s): 493672485 (3) Obesity (BMI 30.0-34.9) Current Visit: Yes Status: Acute Code(s): E66.9 - OBESITY, UNSPECIFIED SNOMED Code(s): 775672674 (4) Cellulitis of left breast Current Visit: Yes Status: Acute Code(s): N61.0 - MASTITIS WITHOUT ABSCESS SNOMED Code(s): 70992295 (5) Left breast abscess Current Visit: Yes Status: Acute Code(s): N61.1 - ABSCESS OF THE BREAST AND NIPPLE SNOMED Code(s): 47599548 (6) Sepsis Current Visit: Yes Status: Acute Code(s): A41.9 - SEPSIS, UNSPECIFIED ORGANISM SNOMED Code(s): 96933624 Plan: 1. Infectious disease following. Preliminary cultures of staph aureus. 2. May shower after change of dressing. Dressing change with iodoform packing daily. Dressing changes may be altered per infectious disease. 3. Continue inpatient hospitalization pending final cultures. Patient presented with sepsis which is now resolved. 4. Pain medication also adjusted.
[2017-10-10] MEDS ORDERED: ALPRAZolam 0.25 MG TAB PO PRN (13:53)
[2017-10-10] MEDS ORDERED: HYDROcodone/APAP 10-325MG 1 EACH TAB PO SCH (16:00)
--- NOTE | 2017-10-10 21:05 | P.PN ---
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 Patient states that since she had the procedure done, her breasts has never stopped hurting. It feels like a toothache that's constant. She has continued to use ice packs and heat without improvement. 2 nights ago she was having fever and rigors. He then noticed a hard lump and that her left breast was larger yesterday. She states she took a bath and she put her robe on and her left breast started leaking all over the floor. She came into [facility] emergency center for evaluation where she was found to have signs of sepsis with fever, tachycardia. Influenza testing was negative. She had an elevated creatinine with acute kidney injury initially 1.4 and repeat of 0.8. Urinalysis was cloudy with leukoesterase large and any BCs 25, squamous cells 7. Patient denies any urinary symptoms. Wound culture was obtained showing gram-positive cocci and urine culture is in process. She underwent a breast ultrasound that showed a large irregular fluid collection could be hematoma, seroma or abscess. Chest x-ray showed no acute findings. She was started on ceftriaxone and vancomycin and admitted to the hospital on the care of Dr. Cook incision and drainage was performed. Still having some significant pain to the breast. Better than yesterday. Still having some copious purulent drainage. Objective - Vital Signs Vital signs: Vital Signs Temp 98.3 F 10/10/17 20:04 Pulse 87 10/10/17 20:04 Resp 20 10/10/17 20:04 BP 125/86 10/10/17 20:04 Pulse Ox 96 10/10/17 20:04 Intake & Output 10/10/17 10/10/17 10/11/17 06:59 18:59 06:59 Intake Total 240 Balance 240 Intake: Oral 240 Other: Voiding Method Toilet # Voids 1 1 - Exam Gen: This is a 57-year-old obese female. She is sitting up in bed and appears to be slightly uncomfortable. She is noted to have pain with movement. HEENT: Head is atraumatic, normocephalic. Pupils equal, round. Sclerae is anicteric. Junk developing. Mucous membranes of the mouth are dry. NECK: Supple. No JVD. No lymphadenopathy. No thyromegaly. LUNGS: Clear to auscultation. No wheezes or rhonchi. No intercostal retractions. HEART: Regular rate and rhythm. No murmur. BREASTS: Are examined with the nurse present. Left breast has wound at 4 o' clock position has some improvement with the surrounding erythema. The breast is also less edematous. However there is still a copious amount of purulent material is easily expressed out of the incision and drainage site. ABDOMEN: Soft. Bowel sounds are present. No masses. No tenderness. EXTREMITIES: No pedal edema. No calf tenderness. NEUROLOGICAL: Patient is awake, alert and oriented x3. - Labs CBC & Chem 7: 10/10/17 06:22 10/09/17 08:25 Labs: Abnormal Lab Results - Last 24 Hours (Table) 10/10/17 Range/Units 06:22 RBC 3.72 L (3.80-5.40) m/uL Hgb 9.6 L (11.4-16.0) gm/dL Hct 31.4 L (34.0-46.0) % MCHC 30.6 L (31.0-37.0) g/dL Eosinophils # 0.8 H (0-0.7) k/uL Microbiology - Last 24 Hours (Table) 10/08/17 18:30 Blood Culture - Preliminary Blood No Growth after 48 hours 10/09/17 17:09 Gram Stain - Preliminary Breast - Left Wound Culture - Preliminary Presumptive Staph aureus 10/08/17 18:30 Gram Stain - Final Breast - Left Wound Culture - Final Staphylococcus aureus 10/09/17 17:09 Foreign Body Culture - Preliminary Other - Other 10/09/17 17:09 Anaerobic Culture - Preliminary Breast - Left 10/08/17 19:50 Urine Culture - Final Urine,Voided Laboratory Results WBC 10.5 k/uL (3.8-10.6) 10/10/17 06:22 RBC 3.72 m/uL (3.80-5.40) L 10/10/17 06:22 Hgb 9.6 gm/dL (11.4-16.0) L 10/10/17 06:22 Hct 31.4 % (34.0-46.0) L 10/10/17 06:22 MCV 84.3 fL (80.0-100.0) 10/10/17 06:22 MCH 25.8 pg (25.0-35.0) 10/10/17 06:22 MCHC 30.6 g/dL (31.0-37.0) L 10/10/17 06:22 RDW 15.0 % (11.5-15.5) 10/10/17 06:22 Plt Count 261 k/uL (150-450) 10/10/17 06:22 Neutrophils % 74 % 10/10/17 06:22 Lymphocytes % 13 % 10/10/17 06:22 Monocytes % 4 % 10/10/17 06:22 Eosinophils % 8 % 10/10/17 06:22 Basophils % 0 % 10/10/17 06:22 Neutrophils # 7.7 k/uL (1.3-7.7) 10/10/17 06:22 Lymphocytes # 1.3 k/uL (1.0-4.8) 10/10/17 06:22 Monocytes # 0.4 k/uL (0-1.0) 10/10/17 06:22 Eosinophils # 0.8 k/uL (0-0.7) H 10/10/17 06:22 Basophils # 0.1 k/uL (0-0.2) 10/10/17 06:22 Hypochromasia Slight 10/10/17 06:22 Anisocytosis Slight 10/08/17 18:30 PT 10.7 sec (9.0-12.0) 10/08/17 18:30 INR 1.1 (<1.2) 10/08/17 18:30 APTT 22.8 sec (22.0-30.0) 10/08/17 18:30 Sodium 142 mmol/L (137-145) 10/09/17 08:25 Potassium 4.2 mmol/L (3.5-5.1) 10/09/17 08:25 Chloride 108 mmol/L (98-107) H 10/09/17 08:25 Carbon Dioxide 28 mmol/L (22-30) 10/09/17 08:25 Anion Gap 6 mmol/L 10/09/17 08:25 BUN 21 mg/dL (7-17) H 10/09/17 08:25 Creatinine 0.83 mg/dL (0.52-1.04) 10/09/17 08:25 Est GFR (MDRD) Af Amer >60 (>60 ml/min/1.73 sqM) 10/09/17 08:25 Est GFR (MDRD) Non-Af >60 (>60 ml/min/1.73 sqM) 10/09/17 08:25 Glucose 102 mg/dL (74-99) H 10/09/17 08:25 Plasma Lactic Acid Enrique 0.7 mmol/L (0.7-2.0) 10/09/17 09:49 Calcium 9.3 mg/dL (8.4-10.2) 10/09/17 08:25 Total Bilirubin 0.6 mg/dL (0.2-1.3) 10/08/17 18:30 AST 21 U/L (14-36) 10/08/17 18:30 ALT 38 U/L (9-52) 10/08/17 18:30 Alkaline Phosphatase 71 U/L (38-126) 10/08/17 18:30 Total Protein 6.1 g/dL (6.3-8.2) L 10/08/17 18:30 Albumin 3.6 g/dL (3.5-5.0) 10/08/17 18:30 Urine Color Yellow 10/08/17 19:50 Urine Appearance Cloudy (Clear) H 10/08/17 19:50 Urine pH 5.5 (5.0-8.0) 10/08/17 19:50 Ur Specific [place] 1.026 (1.001-1.035) 10/08/17 19:50 Urine Protein 1+ (Negative) H 10/08/17 19:50 Urine Glucose (UA) Negative (Negative) 10/08/17 19:50 Urine Ketones Trace (Negative) H 10/08/17 19:50 Urine Blood Negative (Negative) 10/08/17 19:50 Urine Nitrite Negative (Negative) 10/08/17 19:50 Urine Bilirubin 1+ (Negative) H 10/08/17 19:50 Urine Urobilinogen 2.0 mg/dL (<2.0) 10/08/17 19:50 Ur Leukocyte Esterase Large (Negative) H 10/08/17 19:50 Urine WBC 25 /hpf (0-5) H 10/08/17 19:50 Ur Squamous Epith Cells 7 /hpf (0-4) H 10/08/17 19:50 Hyaline Casts 25 /lpf (0-2) H 10/08/17 19:50 Urine Mucus Rare /hpf (None) H 10/08/17 19:50 Influenza Type A RNA Not Detected (Not Detectd) 10/08/17 18:30 Influenza Type B (PCR) Not Detected (Not Detectd) 10/08/17 18:30 Microbiology 10/08/17 18:30 Blood Blood Culture - Preliminary No Growth after 48 hours 10/09/17 17:09 Breast - Left Gram Stain - Preliminary 10/09/17 17:09 Breast - Left Wound Culture - Preliminary Presumptive Staph aureus 10/08/17 18:30 Breast - Left Gram Stain - Final 10/08/17 18:30 Breast - Left Wound Culture - Final Staphylococcus aureus 10/09/17 17:09 Other - Other Foreign Body Culture - Preliminary 10/09/17 17:09 Breast - Left Anaerobic Culture - Preliminary 10/08/17 19:50 Urine,Voided Urine Culture - Final Assessment and Plan (1) Cancer of left breast Current Visit: Yes Status: Acute Code(s): C50.912 - MALIGNANT NEOPLASM OF UNSPECIFIED SITE OF LEFT FEMALE BREAST SNOMED Code(s): 732667128 (2) Left breast abscess Narrative/Plan: Patient to have incision and drainage, continue antibiotic therapy while cultures are process. Cultures will direct the need for outpatient intravenous antibiotic therapy. Will need ongoing pain control and wound care as per surgery. Currently culture show evidence of MSSA. Given the extensive nature of the infection at this time we'll likely plan a course of outpatient intravenous antibiotic therapy. Fortunately leukocytosis is improving but is still having copious drainage at this time. Current Visit: Yes Status: Acute Code(s): N61.1 - ABSCESS OF THE BREAST AND NIPPLE SNOMED Code(s): 13837463
[2017-10-10] MEDS: HYDROcodone/APAP 10-325MG 1 EACH TAB PO PRN (21:30)
[2017-10-10] MEDS: DOXEPIN 25 MG CAP PO SCH (23:33)
[2017-10-11 08:00] LABS: Anisocytosis Slight; Basophils # (A) 0.1 k/uL (0-0.2); Basophils % (A) 1 %; Eosinophils # (A) 0.7 k/uL (0-0.7); Eosinophils % (A) 12 %; HCT 30.9 % (34.0-46.0); HGB 9.4 gm/dL (11.4-16.0); Hypochromasia Slight; Lymphocytes # (A) 1.2 k/uL (1.0-4.8); Lymphocytes % (A) 21 %; MCH 25.8 pg (25.0-35.0); MCHC 30.5 g/dL (31.0-37.0); MCV 84.5 fL (80.0-100.0); Mean Platelet Volume 7.6; Monocytes # (A) 0.3 k/uL (0-1.0); Monocytes % (A) 5 %; Neutrophils # (A) 3.3 k/uL (1.3-7.7); Neutrophils % (A) 58 %; Platelet Count 291 k/uL (150-450); RBC 3.66 m/uL (3.80-5.40); RDW 16.4 % (11.5-15.5); WBC 5.7 k/uL (3.8-10.6)
[2017-10-11] MEDS ORDERED: VANCOMYCIN TROUGH DUE 1 EACH MISC MISCELLANE ONE (08:00)
[2017-10-11] MEDS: VANCOMYCIN 1,500 MG in SODIUM CHLORIDE 0.9% 250 ML IVPB SCH ×2 (08:03→20:37)
[2017-10-11] MEDS: HYDROcodone/APAP 10-325MG 1 EACH TAB PO PRN ×3 (08:03→20:20)
[2017-10-11] MEDS: cefTRIAXone IN SWFI 1,000 MG/10 ML SYRINGE IVP SCH (10:26)
[2017-10-11] MEDS: KETOROLAC 30 MG/ML 1 ML VIAL IVP PRN ×2 (13:38→20:19)
--- NOTE | 2017-10-11 13:47 | P.PN ---
Subjective Progress Note Date: 10/11/17 57-year-old female seen and examined sitting up in bed taking a diet denies nausea vomiting patient states there continues to be discomfort involving the left breast. Currently being followed by infectious disease for anabiotic recommendations. Currently is on vancomycin and ceftriaxone wound cultures pending Patient is postop October 09 open drainage of a complex left breast abscess. 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 September 19 underwent left breast lumpectomy with sentinel node biopsy] high- grade ductal cancer in situ and negative lymph nodes Objective - Vital Signs Vital signs: Vital Signs Temp 98.4 F 10/11/17 11:33 Pulse 85 10/11/17 11:33 Resp 16 10/11/17 11:33 BP 131/82 10/11/17 11:33 Pulse Ox 94 L 10/11/17 11:33 Intake & Output 10/10/17 10/11/17 10/11/17 18:59 06:59 18:59 Intake Total 240 60 Balance 240 60 Intake: Oral 240 60 Other: Voiding Method Toilet # Voids 1 1 4 # Bowel Movements 1 - Exam Physical exam Sitting up in bed taking a diet reports less left breast pain Lungs adequate air movement bilaterally on room air no cough Chest support bra on dressing left breast moderate amount of serous drainage noted no odor packing in place at surgical site Heart S1-S2 audible regular denying chest pain Abdomen soft nontender reports of nausea vomiting Extremities no edema noted - Labs CBC & Chem 7: 10/11/17 07:04 10/09/17 08:25 Labs: Abnormal Lab Results - Last 24 Hours (Table) 10/11/17 Range/Units 07:04 RBC 3.66 L (3.80-5.40) m/uL Hgb 9.4 L (11.4-16.0) gm/dL Hct 30.9 L (34.0-46.0) % MCHC 30.5 L (31.0-37.0) g/dL RDW 16.4 H (11.5-15.5) % Microbiology - Last 24 Hours (Table) 10/09/17 17:09 Foreign Body Culture - Preliminary Other - Other Presumptive Staph aureus 10/08/17 18:30 Blood Culture - Preliminary Blood No Growth after 48 hours 10/09/17 17:09 Gram Stain - Preliminary Breast - Left Wound Culture - Preliminary Presumptive Staph aureus 10/08/17 18:30 Gram Stain - Final Breast - Left Wound Culture - Final Staphylococcus aureus Assessment and Plan Assessment: Impression Present on admission sepsis likely due to left breast abscess Open drainage of a complex left breast abscess with removal of foreign body done on October 09 Obesity BMI 34.6 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 Laura Chery nurse practitioner acting as scribe for signing physician.
[2017-10-11] MEDS: SODIUM CHLORIDE 0.9% 1,000 ML IV SCH ×2 (20:39)
--- NOTE | 2017-10-11 23:33 | P.PN ---
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 Patient states that since she had the procedure done, her breasts has never stopped hurting. It feels like a toothache that's constant. She has continued to use ice packs and heat without improvement. 2 nights ago she was having fever and rigors. He then noticed a hard lump and that her left breast was larger yesterday. She states she took a bath and she put her robe on and her left breast started leaking all over the floor. She came into [facility] emergency center for evaluation where she was found to have signs of sepsis with fever, tachycardia. Influenza testing was negative. She had an elevated creatinine with acute kidney injury initially 1.4 and repeat of 0.8. Urinalysis was cloudy with leukoesterase large and any BCs 25, squamous cells 7. Patient denies any urinary symptoms. Wound culture was obtained showing gram-positive cocci and urine culture is in process. She underwent a breast ultrasound that showed a large irregular fluid collection could be hematoma, seroma or abscess. Chest x-ray showed no acute findings. She was started on ceftriaxone and vancomycin and admitted to the hospital on the care of Dr. Cook incision and drainage was performed. Still having some pain to the breast. Better than yesterday. Less drainage today. Objective - Vital Signs Vital signs: Vital Signs Temp 97.9 F 10/11/17 20:25 Pulse 90 10/11/17 20:25 Resp 20 10/11/17 20:25 BP 178/91 10/11/17 20:25 Pulse Ox 95 10/11/17 20:25 Intake & Output 10/11/17 10/11/17 10/12/17 06:59 18:59 06:59 Intake Total 260 Balance 260 Intake: Oral 260 Other: # Voids 1 4 # Bowel Movements 1 - Exam Gen: This is a 57-year-old obese female. She is sitting up in bed and appears to be slightly uncomfortable. She is noted to have pain with movement. HEENT: Head is atraumatic, normocephalic. Pupils equal, round. Sclerae is anicteric. Junk developing. Mucous membranes of the mouth are dry. NECK: Supple. No JVD. No lymphadenopathy. No thyromegaly. LUNGS: Clear to auscultation. No wheezes or rhonchi. No intercostal retractions. HEART: Regular rate and rhythm. No murmur. BREASTS: Are examined with the nurse present. Left breast has wound at 4 o' clock position has some improvement with the surrounding erythema. The breast is also less edematous. However there is still a copious amount of purulent material is easily expressed out of the incision and drainage site. ABDOMEN: Soft. Bowel sounds are present. No masses. No tenderness. EXTREMITIES: No pedal edema. No calf tenderness. NEUROLOGICAL: Patient is awake, alert and oriented x3. - Labs CBC & Chem 7: 10/11/17 07:04 10/09/17 08:25 Labs: Abnormal Lab Results - Last 24 Hours (Table) 10/11/17 Range/Units 07:04 RBC 3.66 L (3.80-5.40) m/uL Hgb 9.4 L (11.4-16.0) gm/dL Hct 30.9 L (34.0-46.0) % MCHC 30.5 L (31.0-37.0) g/dL RDW 16.4 H (11.5-15.5) % Microbiology - Last 24 Hours (Table) 10/08/17 18:30 Blood Culture - Preliminary Blood No Growth after 72 hours 10/09/17 17:09 Anaerobic Culture - Preliminary Breast - Left 10/09/17 17:09 Gram Stain - Final Breast - Left Wound Culture - Final Staphylococcus aureus 10/09/17 17:09 Foreign Body Culture - Preliminary Other - Other Presumptive Staph aureus 10/08/17 18:30 Gram Stain - Final Breast - Left Wound Culture - Final Staphylococcus aureus Laboratory Results WBC 5.7 k/uL (3.8-10.6) 10/11/17 07:04 RBC 3.66 m/uL (3.80-5.40) L 10/11/17 07:04 Hgb 9.4 gm/dL (11.4-16.0) L 10/11/17 07:04 Hct 30.9 % (34.0-46.0) L 10/11/17 07:04 MCV 84.5 fL (80.0-100.0) 10/11/17 07:04 MCH 25.8 pg (25.0-35.0) 10/11/17 07:04 MCHC 30.5 g/dL (31.0-37.0) L 10/11/17 07:04 RDW 16.4 % (11.5-15.5) H 10/11/17 07:04 Plt Count 291 k/uL (150-450) 10/11/17 07:04 Neutrophils % 58 % 10/11/17 07:04 Lymphocytes % 21 % 10/11/17 07:04 Monocytes % 5 % 10/11/17 07:04 Eosinophils % 12 % 10/11/17 07:04 Basophils % 1 % 10/11/17 07:04 Neutrophils # 3.3 k/uL (1.3-7.7) 10/11/17 07:04 Lymphocytes # 1.2 k/uL (1.0-4.8) 10/11/17 07:04 Monocytes # 0.3 k/uL (0-1.0) 10/11/17 07:04 Eosinophils # 0.7 k/uL (0-0.7) 10/11/17 07:04 Basophils # 0.1 k/uL (0-0.2) 10/11/17 07:04 Hypochromasia Slight 10/11/17 07:04 Anisocytosis Slight 10/11/17 07:04 PT 10.7 sec (9.0-12.0) 10/08/17 18:30 INR 1.1 (<1.2) 10/08/17 18:30 APTT 22.8 sec (22.0-30.0) 10/08/17 18:30 Sodium 142 mmol/L (137-145) 10/09/17 08:25 Potassium 4.2 mmol/L (3.5-5.1) 10/09/17 08:25 Chloride 108 mmol/L (98-107) H 10/09/17 08:25 Carbon Dioxide 28 mmol/L (22-30) 10/09/17 08:25 Anion Gap 6 mmol/L 10/09/17 08:25 BUN 21 mg/dL (7-17) H 10/09/17 08:25 Creatinine 0.83 mg/dL (0.52-1.04) 10/09/17 08:25 Est GFR (MDRD) Af Amer >60 (>60 ml/min/1.73 sqM) 10/09/17 08:25 Est GFR (MDRD) Non-Af >60 (>60 ml/min/1.73 sqM) 10/09/17 08:25 Glucose 102 mg/dL (74-99) H 10/09/17 08:25 Plasma Lactic Acid Enrique 0.7 mmol/L (0.7-2.0) 10/09/17 09:49 Calcium 9.3 mg/dL (8.4-10.2) 10/09/17 08:25 Total Bilirubin 0.6 mg/dL (0.2-1.3) 10/08/17 18:30 AST 21 U/L (14-36) 10/08/17 18:30 ALT 38 U/L (9-52) 10/08/17 18:30 Alkaline Phosphatase 71 U/L (38-126) 10/08/17 18:30 Total Protein 6.1 g/dL (6.3-8.2) L 10/08/17 18:30 Albumin 3.6 g/dL (3.5-5.0) 10/08/17 18:30 Urine Color Yellow 10/08/17 19:50 Urine Appearance Cloudy (Clear) H 10/08/17 19:50 Urine pH 5.5 (5.0-8.0) 10/08/17 19:50 Ur Specific [place] 1.026 (1.001-1.035) 10/08/17 19:50 Urine Protein 1+ (Negative) H 10/08/17 19:50 Urine Glucose (UA) Negative (Negative) 10/08/17 19:50 Urine Ketones Trace (Negative) H 10/08/17 19:50 Urine Blood Negative (Negative) 10/08/17 19:50 Urine Nitrite Negative (Negative) 10/08/17 19:50 Urine Bilirubin 1+ (Negative) H 10/08/17 19:50 Urine Urobilinogen 2.0 mg/dL (<2.0) 10/08/17 19:50 Ur Leukocyte Esterase Large (Negative) H 10/08/17 19:50 Urine WBC 25 /hpf (0-5) H 10/08/17 19:50 Ur Squamous Epith Cells 7 /hpf (0-4) H 10/08/17 19:50 Hyaline Casts 25 /lpf (0-2) H 10/08/17 19:50 Urine Mucus Rare /hpf (None) H 10/08/17 19:50 Vancomycin Trough 13.8 ug/mL 10/11/17 07:04 Influenza Type A RNA Not Detected (Not Detectd) 10/08/17 18:30 Influenza Type B (PCR) Not Detected (Not Detectd) 10/08/17 18:30 Microbiology 10/08/17 18:30 Blood Blood Culture - Preliminary No Growth after 72 hours 10/09/17 17:09 Breast - Left Anaerobic Culture - Preliminary 10/09/17 17:09 Breast - Left Gram Stain - Final 10/09/17 17:09 Breast - Left Wound Culture - Final Staphylococcus aureus 10/09/17 17:09 Other - Other Foreign Body Culture - Preliminary Presumptive Staph aureus 10/08/17 18:30 Breast - Left Gram Stain - Final 10/08/17 18:30 Breast - Left Wound Culture - Final Staphylococcus aureus 10/08/17 19:50 Urine,Voided Urine Culture - Final Assessment and Plan (1) Cancer of left breast Current Visit: Yes Status: Acute Code(s): C50.912 - MALIGNANT NEOPLASM OF UNSPECIFIED SITE OF LEFT FEMALE BREAST SNOMED Code(s): 099799097 (2) Left breast abscess Narrative/Plan: Patient to have incision and drainage, continue antibiotic therapy while cultures are process. Cultures will direct the need for outpatient intravenous antibiotic therapy. Will need ongoing pain control and wound care as per surgery. Currently culture show evidence of MSSA. Given the extensive nature of the infection at this time the plan will be for outpatient intravenous antibiotic therapy. Rocephin 2 g a day is planned. Scripts are written and initiated. She apparently will be going to the local hospital for infusion. Fortunately leukocytosis is improving but is still having copious drainage at this time. Current Visit: Yes Status: Acute Code(s): N61.1 - ABSCESS OF THE BREAST AND NIPPLE SNOMED Code(s): 20212056
[2017-10-12] MEDS: DOXEPIN 25 MG CAP PO SCH (00:43)
[2017-10-12] MEDS: HYDROcodone/APAP 10-325MG 1 EACH TAB PO PRN ×2 (06:04→12:11)
[2017-10-12 07:05] LABS: Basophils # (A) 0.1 k/uL (0-0.2); Basophils % (A) 1 %; Eosinophils # (A) 0.7 k/uL (0-0.7); Eosinophils % (A) 11 %; HCT 33.5 % (34.0-46.0); HGB 10.3 gm/dL (11.4-16.0); Lymphocytes # (A) 1.5 k/uL (1.0-4.8); Lymphocytes % (A) 25 %; MCH 25.5 pg (25.0-35.0); MCHC 30.8 g/dL (31.0-37.0); MCV 82.6 fL (80.0-100.0); Mean Platelet Volume 6.8; Monocytes # (A) 0.4 k/uL (0-1.0); Monocytes % (A) 7 %; Neutrophils # (A) 3.2 k/uL (1.3-7.7); Neutrophils % (A) 53 %; Platelet Count 369 k/uL (150-450); RBC 4.05 m/uL (3.80-5.40); RDW 14.7 % (11.5-15.5)
[2017-10-12] MEDS ORDERED: LIDOCAINE 2% INJ 20 MG/ML SQ ONE (08:33)
[2017-10-12] MEDS ORDERED: HYDROmorphone 2 MG/ML 1 ML SYRINGE IVP PRN (09:04)
--- NOTE | 2017-10-12 09:10 | IR ---
PICC LINE PLACEMENT: HISTORY: Infection requiring long-term antibiotic therapy PROCEDURE: Ultrasound and fluoroscopic guidance of PICC line placement. COMPLICATIONS: None ANESTHESIA: 1. 1% Lidocaine locally. FINDINGS/TECHNIQUE: The procedure was explained to the patient. The risks, complications, benefits and alternatives were discussed and any questions were answered. Informed consent was obtained. The patient was placed supine on the fluoroscopic table and prepped and draped in the usual sterile [facility] ion. Utilizing a 21 gauge needle and sonographic and fluoroscopic guidance, access in the vein was achieved and there is placement of a 0.018 guidewire. The vein is patent. A 4-F sheath was placed o bennie the guidewire. The guidewire and dilator were removed and a 4-F. PICC line was placed through th e sheath with the tip at the level of the SVC. The sheath was removed, the catheter was flushed and sutured into position. The patient was stable throughout the procedure and remained stable upon disc harge from the Department of Radiology. The vein puncture was patent under ultrasound. A real scale image was obtained to document patency of the vein punctured. All elements of the maximal barrier technique were utilized. FLUOROSCOPY TIME: 0.1 minute, one image obtained IMPRESSION: Successful PICC line placement under ultrasound and fluoroscopic guidance.
[2017-10-12] MEDS: cefTRIAXone IN SWFI 1,000 MG/10 ML SYRINGE IVP SCH (09:25)
[2017-10-12] MEDS: SODIUM CHLORIDE 0.9% 1,000 ML IV SCH (10:27)
--- NOTE | 2017-10-12 13:14 | P.DS ---
Providers Date of admission: 10/08/17 20:32 Expected date of discharge: 10/12/17 Attending physician: Gayatri Kingsley Consults: 10/09/17 09:41 Consult Physician Routine Consulting Provider: Bill Valdez Reason/Comments: Sepsis Do you want consulting provider notified?: Yes Primary care physician: Bill Pratt [facility] Course: 57-year-old female with a history of a left breast lumpectomy with sentinel node biopsies done on September 19 which came back as high-grade ductal cancer in situ with negative lymph nodes. Patient came into the emergency room on the day of admission after she noted a hard lump in her left breast. The left lump enlarged in size. Patient stated that the left breast was painful. Patient underwent a breast ultrasound of the left breast it showed a large irregular fluid collection. Patient was admitted to the services of the attending. In the emergency room patient was febrile, tachycardic with leukocytosis with sepsis likely due to the left breast abscess underwent a deep subcutaneous breast tissue complex abscess over 50 mL was drained with A foreign body along the left breast saturated within the pocket of the breast abscess done on the October 09. Postprocedure after initiating IV antibiotic therapy patient stated there was less pain in the left breast. 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 Laura Chery nurse practitioner acting as scribe for signing physician. Patient Condition at Discharge: Serious Plan - Discharge Summary New Discharge Prescriptions: New cefTRIAXone [Rocephin] 2,000 mg IVPB DAILY #14 vial Acetaminophen Tab [Tylenol] 650 mg PO Q6HR PRN tab PRN Reason: Mild Pain Or Fever > 100.5 cefTRIAXone [Rocephin] 1,000 mg IVP Q24HR syringe Continue Doxepin HCl [SINEquan] 150 mg PO HS HYDROcodone/APAP 10-325MG [[place] 10-325] 1 tab PO TID ALPRAZolam [Xanax] 0.25 mg PO BID PRN PRN Reason: Anxiety Ibuprofen [Motrin] 800 mg PO TID PRN PRN Reason: Pain Discharge Medication List Doxepin HCl [SINEquan] 150 mg PO HS 08/20/17 [History] HYDROcodone/APAP 10-325MG [[place] 10-325] 1 tab PO TID 08/20/17 [History] ALPRAZolam [Xanax] 0.25 mg PO BID PRN 09/13/17 [History] Ibuprofen [Motrin] 800 mg PO TID PRN 10/08/17 [History] Acetaminophen Tab [Tylenol] 650 mg PO Q6HR PRN tab 10/12/17 [Rx] cefTRIAXone [Rocephin] 1,000 mg IVP Q24HR syringe 10/12/17 [Rx] cefTRIAXone [Rocephin] 2,000 mg IVPB DAILY #14 vial 10/12/17 [Rx] Follow up Appointment(s)/Referral(s): Bill Mayo MD [Primary Care Provider] - 1-2 days Gayatri Kingsley MD [STAFF PHYSICIAN] - 10/16/17 2:00 pm (You have a follow up appointment with Dr Kingsley on 2017 at 2:00 pm.) [facility], [NON-STAFF] - Ambulatory/Diagnostic Orders: Basic Metabolic Panel [LAB.AMB] Location: Determined By Patient Complete Blood Count w/diff [LAB.AMB] Location: Determined By Patient Patient Instructions/Handouts: Peripherally Inserted Central Catheters and Midline Catheters (DC), Peripherally Inserted Central Catheters and Midline Catheters (GEN), Abscess (GEN) Activity/Diet/Wound Care/Special Instructions: Wound care at home: remove packing, shower, repack with 8 to 10 inches of iodoform gauze packing. Cover with dressing and wear the surgical bra. Picc line care through [facility]. Call Dr Logan if you develop a fever, increase in pain, increase in swelling of the breast, or if you have any other concerns or questions. Good hand washing by all. Probiotic and multivitamin daily. Discharge Disposition: HOME WITH HOME HEALTH SERVICES
[2017-10-12 13:29] VITALS: BP 145/83; PULSE 81; RESP 16; TEMP 98.1
== END 2017-10-12 13:13 | disposition home health service (06) | DRG 854 ==
LOC: EC 17:43 → 6PED 20:32
PROVIDERS: ADMIT Surgery Plastic and Reconstructive Surgery; ATTEND Surgery Plastic and Reconstructive Surgery
PROC: 0HCU0ZZ Extirpation of Matter from Left Breast, Open Approach (ICD-10-PCS; 2017-10-09)
PROC: 0JD60ZZ Extraction of Chest Subcutaneous Tissue and Fascia, Open Approach (ICD-10-PCS; 2017-10-09)
PROC: 0J960ZZ Drainage of Chest Subcutaneous Tissue and Fascia, Open Approach (ICD-10-PCS; principal; 2017-10-09 16:50)
PROC: 02HV33Z Insertion of Infusion Device into Superior Vena Cava, Percutaneous Approach (ICD-10-PCS; 2017-10-12)
DX: A41.9 Sepsis, unspecified organism (principal); N17.9 Acute kidney failure, unspecified; D05.12 Intraductal carcinoma in situ of left breast; E66.9 Obesity, unspecified; F41.9 Anxiety disorder, unspecified; L40.9 Psoriasis, unspecified; B95.61 Methicillin susceptible Staphylococcus aureus infection as the cause of diseases classified elsewhere; M79.7 Fibromyalgia; N61.1 Abscess of the breast and nipple; G47.00 Insomnia, unspecified; M19.90 Unspecified osteoarthritis, unspecified site; M79.5 Residual foreign body in soft tissue; Z68.34 Body mass index [BMI] 34.0-34.9, adult; Z87.891 Personal history of nicotine dependence; Z79.899 Other long term (current) drug therapy; Z98.84 Bariatric surgery status
CPT/HCPCS: 36415; 36556; 71046; 76937; 77001; 80048; 80053; 80202; 81001; 83605; 85025; 85610; 85730; 87040; 87070; 87075; 87077; 87086; 87186; 87205; 87502; 94760; 96374; 99285

== ENCOUNTER → 2017-10-23 | Outpatient (CLI) | payer OTHER ==
--- NOTE | 2017-10-24 08:29 | US ---
EXAMINATION TYPE: US thyroid st tissue head/neck DATE OF EXAM: 10/23/2017 COMPARISON: NONE CLINICAL HISTORY: E04.1 Nontoxic single thyroid nodule. GLAND SIZE: Right Lobe: 4.5 x 1.6 x 1.4 cm Overall Parenchyma: homogenous Left Lobe: 4.5 x 1.5 x 1.3 cm Overall Parenchyma: homogeneous Isthmus Thickness: 0.2 cm NODULES RIGHT: # of nodules measured on right: 0 LEFT: # of nodules measured on left: 0 ISTHMUS: # of nodules measured in the isthmus: 0 Bilateral neck scanned, no evidence of lymphadenopathy. IMPRESSION: Unremarkable thyroid ultrasound without visualized nodule or thyroid gland enlargement.
== END | disposition home or self-care (01) ==
LOC: RADUSWWP 16:14
PROVIDERS: ATTEND Surgery
DX: E04.1 Nontoxic single thyroid nodule (principal)
CPT/HCPCS: 76536

== ENCOUNTER → 2017-10-23 | Outpatient (CLI) | payer OTHER ==
[2017-10-23 17:42] LABS: Anisocytosis Slight; HCT 33.4 % (34.0-46.0); HGB 10.9 gm/dL (11.4-16.0); Hypochromasia Slight; MCHC 32.6 g/dL (31.0-37.0); MCV 79.9 fL (80.0-100.0); Mean Platelet Volume 7.6; Platelet Count 328 k/uL (150-450); RBC 4.18 m/uL (3.80-5.40); RDW 16.2 % (11.5-15.5); WBC 4.6 k/uL (3.8-10.6)
[2017-10-23 17:51] LABS: Prothrombin Time 9.6 sec (9.0-12.0)
[2017-10-23 17:57] LABS: Partial Thromboplastin Time 22.2 sec (22.0-30.0)
[2017-10-23 18:18] LABS: ALT 29 U/L (9-52); AST 18 U/L (14-36); Alkaline Phosphatase 76 U/L (38-126); Anion Gap 12 mmol/L; Blood Urea Nitrogen 21 mg/dL (7-17); Calcium 9.2 mg/dL (8.4-10.2); Carbon Dioxide 26 mmol/L (22-30); Chloride 107 mmol/L (98-107); Cholesterol 165 mg/dL (<200); Glucose 97 mg/dL (74-99); HDL Cholesterol 37 mg/dL (40-60); LDL Cholesterol,Calculated 93 mg/dL (0-99); Magnesium 1.9 mg/dL (1.6-2.3); Phosphorus 3.5 mg/dL (2.5-4.5); Potassium 4.4 mmol/L (3.5-5.1); Sodium 145 mmol/L (137-145); Total Bilirubin 0.2 mg/dL (0.2-1.3); Total Protein 6.7 g/dL (6.3-8.2); Triglycerides 175 mg/dL (<150)
[2017-10-24 01:44] LABS: Parathyroid Hormone Intact 69.8 pg/mL (14.0-72.0)
[2017-10-24 01:48] LABS: Vitamin D 25 Hydroxy 31.6 ng/mL (30.0-100.0)
[2017-10-24 01:55] LABS: Folate, Serum 22.9 ng/mL; Iron Saturation 8.11 (12.00-45.00)
[2017-10-24 02:20] LABS: Hemoglobin A1C 6.5 % (4.0-6.0)
[2017-10-25 11:25] LABS: Zinc, Serum 73 ug/dL (60-130)
[2017-10-26 05:36] LABS: Vitamin B1 44 ug/L (38-122)
[2017-10-26 06:46] LABS: Vitamin A 47 ug/dL (38-106)
[2017-10-26 17:40] LABS: Selenium 133 mcg/L (63-160)
== END | disposition home or self-care (01) ==
LOC: LABWHC1 16:36
PROVIDERS: ATTEND Surgery Plastic and Reconstructive Surgery
DX: E66.01 Morbid (severe) obesity due to excess calories (principal); E21.1 Secondary hyperparathyroidism, not elsewhere classified; E89.1 Postprocedural hypoinsulinemia; D50.8 Other iron deficiency anemias; K90.89 Other intestinal malabsorption; E55.9 Vitamin D deficiency, unspecified; K74.1 Hepatic sclerosis; N19 Unspecified kidney failure; K50.90 Crohn's disease, unspecified, without complications
CPT/HCPCS: 36415; 76536; 80053; 80061; 82306; 82525; 82607; 82728; 82746; 83036; 83540; 83550; 83735; 83970; 84100; 84134; 84255; 84425; 84443; 84590; 84630; 85027; 85610; 85730

== ENCOUNTER → 2018-02-22 | Outpatient (CLI) | payer OTHER ==
--- NOTE | 2018-02-24 20:14 | BD ---
EXAMINATION TYPE: Axial Bone Density DATE OF EXAM: 02/22/2018 COMPARISON: NONE CLINICAL HISTORY: 57-year-old female postmenopausal with HRT Height: 64.2 IN Weight: 212 LBS FRAX RISK QUESTIONS: Secondary Osteoporosis: 4. Malnutrition: YES BARIATRIC SURGERY RISK FACTORS HISTORY OF: Active: YES Postmenopausal woman: AGE 50 MEDICATIONS: Additional Medications: ARIMIDEX, HYDROCODONE, MOTRIN 800, DOXEPIN, ANXIETY MED Additional History: BREAST CANCER WITH RADIATION EXAM MEASUREMENTS: Bone mineral densitometry was performed using the [employer] System. Bone mineral density as measured about the Lumbar spine is: ----- L1-L4(G/cm2): 1.266 T Score Values are as follows: ----- L2: 0.5 ----- L3: 0.8 ----- L4: 1.4 ----- L1-L4: 0.7 Bone mineral density BASELINE Bone mineral density about the R hip (g/cm2): 0.918 Bone mineral density about the L hip (g/cm2): 0.858 T Score values are as follows: -----R Neck: -0.9 -----L Neck: -1.3 -----R Total: -0.1 -----L Total: -0.4 Bone mineral density BASELINE IMPRESSION: Osteopenia (T Score between -2.5 and -1). There is slightly increased risk of fracture and the patient may be considered for treatment. Re-Screen 2-5 years. NOTE: T-SCORE=SD OF THE YOUNG ADULT MEAN.
== END | disposition home or self-care (01) ==
LOC: RADBDWWP 15:41
PROVIDERS: ATTEND Internal Medicine Hematology & Oncology
DX: M85.80 Other specified disorders of bone density and structure, unspecified site (principal); Z79.890 Hormone replacement therapy
CPT/HCPCS: 77080

== ENCOUNTER → 2018-03-22 | Outpatient (CLI) | payer OTHER ==
--- NOTE | 2018-03-22 09:37 | USB ---
Reason for exam: follow-up at short interval from prior study. History: Patient has history of breast cancer at age 57. Malignant MG pre op loc each addl LT of the left breast, September 18, 2017. Malignant MG pre op needle loc LT of the left breast, September 18, 2017. Lumpectomy of the left breast, September 18, 2017. Malignant MG stereo VAD BX LT of the left breast, August 24, 2017. Physical Findings: Nurse Summary: 0.5cm moves (nurse juliana). US Breast LT Left complete breast ultrasound includes all four quadrants, the retroareolar region and axilla. Finding demonstrates elongated vascular area contiguous with the scar site in the area of prior seroma appears similar in morphology. No new suspicious finding. These results were verbally communicated with the patient and result sheet given to the patient on 03/22/18. ASSESSMENT: Benign, BI-RAD 2 RECOMMENDATION: Follow-up diagnostic mammogram of both breasts in 6 months. Back on schedule.
== END | disposition home or self-care (01) ==
LOC: RADUSWWP 06:57
PROVIDERS: ATTEND Internal Medicine Hematology & Oncology
DX: N64.4 Mastodynia (principal); Z85.3 Personal history of malignant neoplasm of breast

== ENCOUNTER → 2018-05-18 | Outpatient (CLI) | payer OTHER ==
--- NOTE | 2018-05-19 12:30 | MR ---
EXAMINATION TYPE: MR brain wo/w con DATE OF EXAM: 05/18/2018 COMPARISON: None HISTORY: Headache, subjective visual disturbance, memory loss CONTRAST: Performed utilizing 0 mL intravenous Gadavist gadolinium contrast. TECHNIQUE: Multiplanar, multiecho imaging on a 3.0 Gloria magnet is performed through the brain. Stud y is performed within 24 hours of arrival to the hospital. The craniovertebral junction is normal. The pituitary is normal. Diffusion-weighted imaging is performed. No abnormal hyperintensity is present to suggest an acute i ntracranial infarct or acute ischemic change. Hyperintensities within the brainstem. Periventricular white matter hyperintensity is present on inve rsion recovery weighted sequences. There are multiple scattered subcortical white matter changes. Fin dings are nonspecific but likely related to chronic white matter ischemic changes. This is out of pro portion to the patient age. No acute changes are evident and perfusion. Following contrast administration, no abnormal enhancement is evident. Ventricles and sulci are appropriate for the patient age. IMPRESSIONS: 1. Chronic appearing white matter ischemic changes. 2. No suspicious acute intracranial changes.
== END | disposition home or self-care (01) ==
LOC: RADMRIMAIN 12:44
PROVIDERS: ATTEND Internal Medicine Hematology & Oncology
DX: I67.82 Cerebral ischemia (principal); H53.10 Unspecified subjective visual disturbances
CPT/HCPCS: 70553; A9581

== ENCOUNTER → 2018-12-19 | Outpatient (CLI) | payer OTHER ==
--- NOTE | 2018-12-20 07:06 | US ---
EXAMINATION TYPE: US transvaginal DATE OF EXAM: 12/19/2018 COMPARISON: NONE CLINICAL HISTORY: N95.0 Post menopausal bleeding. Three episodes in past year per patient; maternal h istory of uterine CA; LMP in late 40's; C Section delivery; TECHNIQUE: Transvaginal (TV) per physician's order. Date of LMP: late 40's. EXAM MEASUREMENTS: Uterus: 5.4 x 3.6 x 2.1 cm Endometrial Stripe: 0.5 cm Right Ovary: 1.1 x 0.7 x 1.0 cm Left Ovary: not seen US exam is technically limited by edge artifact from C section scar. 1. Uterus: Anteverted 2. Endometrium: thickness as measured is wnl post menopause 3. Right Ovary: wnl 4. Left Ovary: not seen 5. Bilateral Adnexa: wnl 6. Posterior cul-de-sac: wnl IMPRESSION: Uterus and endometrium are somewhat poorly defined. Exam is limited. Consider NETWORK SECURITY OFFICER consult .
== END | disposition home or self-care (01) ==
LOC: RADUSWWP 16:35
PROVIDERS: ATTEND Family Medicine
DX: N95.0 Postmenopausal bleeding (principal)
CPT/HCPCS: 76830

== ENCOUNTER → 2019-01-01 | Outpatient (CLI) | payer OTHER ==
[2019-01-01 09:02] LABS: Basophils # (A) 0.1 k/uL (0-0.2); Basophils % (A) 1 %; Eosinophils # (A) 0.4 k/uL (0-0.7); Eosinophils % (A) 8 %; HCT 43.6 % (34.0-46.0); HGB 13.7 gm/dL (11.4-16.0); Lymphocytes # (A) 1.5 k/uL (1.0-4.8); Lymphocytes % (A) 28 %; MCH 27.2 pg (25.0-35.0); MCHC 31.4 g/dL (31.0-37.0); MCV 86.7 fL (80.0-100.0); Mean Platelet Volume 7.4; Monocytes # (A) 0.3 k/uL (0-1.0); Monocytes % (A) 6 %; Neutrophils # (A) 2.9 k/uL (1.3-7.7); Neutrophils % (A) 55 %; Platelet Count 266 k/uL (150-450); RBC 5.03 m/uL (3.80-5.40); RDW 14.7 % (11.5-15.5); WBC 5.3 k/uL (3.8-10.6)
[2019-01-01 18:13] LABS: LDL Cholesterol,Calculated 122.2 mg/dL (0.0-131.0); VLDL Calculation 25.8 mg/dL (5.00-40.00)
[2019-01-01 18:14] LABS: Albumin 4.6 g/dL (3.80-4.90); Albumin/Globulin Ratio 2.3 (1.60-3.17); Anion Gap 8.7 mmol/L (4.00-12.00); Calcium 9.1 mg/dL (8.7-10.3); Carbon Dioxide 26.3 mmol/L (21.6-31.8); Total Bilirubin 0.7 mg/dL (0.3-1.2); Total Protein 6.6 g/dL (6.2-8.2)
== END ==
LOC: LABWHC1 08:32
PROVIDERS: ATTEND Family Medicine
DX: Z00.00 Encounter for general adult medical examination without abnormal findings (principal); Z13.220 Encounter for screening for lipoid disorders; Z13.29 Encounter for screening for other suspected endocrine disorder
CPT/HCPCS: 36415; 80053; 80061; 84443; 85025

== ENCOUNTER → 2019-01-01 | Outpatient (CLI) | payer OTHER ==
--- NOTE | 2019-01-01 09:20 | MM ---
Reason for exam: additional evaluation requested from prior study. Last mammogram was performed 1 year and 5 months ago. History: Patient has history of breast cancer at age 57. Malignant MG pre op loc each addl LT of the left breast, September 18, 2017. Malignant MG pre op needle loc LT of the left breast, September 18, 2017. Lumpectomy of the left breast, September 18, 2017. Malignant MG stereo VAD BX LT of the left breast, August 24, 2017. Physical Findings: Nurse did not find any significant physical abnormalities on exam. MG Diagnostic Mammo w CAD CHEN Bilateral CC and MLO view(s) were taken. Prior study comparison: July 31, 2017, mammogram, performed at [facility]. July 06, 2015, mammogram, performed at [facility]. There are scattered fibroglandular densities. Post surgical and post therapy changes in the left breast. 6 month follow up recommended to assess for any evolving changes. These results were verbally communicated with the patient and result sheet given to the patient on 01/01/19. ASSESSMENT: Probably benign, BI-RAD 3 RECOMMENDATION: Follow-up diagnostic mammogram of the left breast in 6 months.
== END ==
LOC: RADMAMWWP 07:22
PROVIDERS: ATTEND Radiology Radiation Oncology
DX: D05.12 Intraductal carcinoma in situ of left breast (principal); Z92.3 Personal history of irradiation
CPT/HCPCS: 77066

== ENCOUNTER → 2019-01-21 | Outpatient (CLI) | payer OTHER ==
--- NOTE | 2019-01-21 11:03 | USB ---
Reason for exam: clinical finding. History: Patient has history of breast cancer at age 57. Malignant MG pre op loc each addl LT of the left breast, September 18, 2017. Malignant MG pre op needle loc LT of the left breast, September 18, 2017. Lumpectomy of the left breast, September 18, 2017. Malignant MG stereo VAD BX LT of the left breast, August 24, 2017. Indicated problem(s): pain in both breasts. Physical Findings: Nurse did not find any significant physical abnormalities on exam. US Breast BILAT Right complete breast ultrasound includes all four quadrants, the retroareolar region and axilla. Finding demonstrates no cystic or solid lesion seen. Left complete breast ultrasound includes all four quadrants, the retroareolar region and axilla. Finding demonstrates no cystic or solid lesion seen. These results were verbally communicated with the patient and result sheet given to the patient on 01/21/19. ASSESSMENT: Negative, BI-RAD 1 RECOMMENDATION: Follow-up diagnostic mammogram of the left breast in 6 months. (per mammogram recommendation) Manage on a clinical basis with regard to pain.
== END ==
LOC: RADUSWWP 09:28
PROVIDERS: ATTEND Internal Medicine Hematology & Oncology
DX: Z08 Encounter for follow-up examination after completed treatment for malignant neoplasm (principal); Z85.3 Personal history of malignant neoplasm of breast

== ENCOUNTER → 2019-02-04 | Outpatient (CLI) | payer OTHER ==
[2019-02-04 15:33] LABS: Basophils # (A) 0.1 k/uL (0-0.2); Basophils % (A) 1 %; Eosinophils # (A) 0.3 k/uL (0-0.7); Eosinophils % (A) 6 %; HGB 13.7 gm/dL (11.4-16.0); Lymphocytes # (A) 1.4 k/uL (1.0-4.8); Lymphocytes % (A) 24 %; MCH 27.3 pg (25.0-35.0); MCHC 31.8 g/dL (31.0-37.0); MCV 85.9 fL (80.0-100.0); Monocytes # (A) 0.3 k/uL (0-1.0); Monocytes % (A) 5 %; Neutrophils # (A) 3.7 k/uL (1.3-7.7); Neutrophils % (A) 62 %; Platelet Count 273 k/uL (150-450); RBC 5.01 m/uL (3.80-5.40); RDW 14.6 % (11.5-15.5); WBC 5.9 k/uL (3.8-10.6)
[2019-02-05 01:08] LABS: Hepatitis B Surface AB- Quant 3.5 mIU/mL
== END | disposition home or self-care (01) ==
LOC: LABWHC1 14:36
PROVIDERS: ATTEND Nurse Practitioner Family
DX: L40.0 Psoriasis vulgaris (principal); L91.8 Other hypertrophic disorders of the skin
CPT/HCPCS: 36415; 84450; 84460; 84520; 85025; 86706; 87340

== ENCOUNTER → 2019-03-17 | Outpatient (CLI) | payer OTHER ==
[2019-03-17 14:47] LABS: Basophils # (A) 0.1 k/uL (0-0.2); Basophils % (A) 1 %; Eosinophils # (A) 0.4 k/uL (0-0.7); Eosinophils % (A) 8 %; HCT 40.4 % (34.0-46.0); Lymphocytes # (A) 1.4 k/uL (1.0-4.8); Lymphocytes % (A) 27 %; MCH 27.5 pg (25.0-35.0); MCHC 32.2 g/dL (31.0-37.0); MCV 85.3 fL (80.0-100.0); Mean Platelet Volume 7.3; Monocytes # (A) 0.3 k/uL (0-1.0); Monocytes % (A) 7 %; Neutrophils # (A) 2.8 k/uL (1.3-7.7); Neutrophils % (A) 56 %; Platelet Count 259 k/uL (150-450); RBC 4.73 m/uL (3.80-5.40); RDW 15.4 % (11.5-15.5); WBC 5.1 k/uL (3.8-10.6)
[2019-03-17 19:10] LABS: ALT 17 U/L (8-44); AST 17 U/L (13-35)
[2019-03-19 05:19] LABS: Herpes simplex IgG I Ab 2.5 (< or = 0.90); Herpes simplex IgG II Ab 4.88 (< or = 0.90)
== END ==
LOC: LABWHC1 13:49
PROVIDERS: ATTEND Family Medicine
DX: Z11.3 Encounter for screening for infections with a predominantly sexual mode of transmission (principal)
CPT/HCPCS: 36415; 84450; 84460; 85025; 86694; 86695; 86696; 86780

== ENCOUNTER → 2020-03-12 | Outpatient (CLI) | payer OTHER ==
--- NOTE | 2020-03-16 08:50 | MM ---
Reason for exam: additional evaluation requested from prior study. Last mammogram was performed 1 year and 2 months ago. History: Patient is postmenopausal and has history of breast cancer at age 57. Malignant MG pre op loc each addl LT of the left breast, September 18, 2017. Malignant MG pre op needle loc LT of the left breast, September 18, 2017. Lumpectomy of the left breast, September 18, 2017. Malignant MG stereo VAD BX LT of the left breast, August 24, 2017. Taking antineoplastic for 2 years beginning at age 57. Physical Findings: Nurse did not find any significant physical abnormalities on exam. MG Diagnostic Mammo w CAD CHEN Bilateral CC and MLO view(s) were taken. Prior study comparison: January 01, 2019, bilateral MG diagnostic mammo w CAD CHEN. August 02, 2017, left breast mammogram, performed at [facility]. The breast tissue is heterogeneously dense. This may lower the sensitivity of mammography. Finding: Architectural distortion in the left breast consistent with known excisional changes. There is no discrete abnormality. These results were verbally communicated with the patient and result sheet given to the patient on 03/12/20. ASSESSMENT: Benign, BI-RAD 2 RECOMMENDATION: Follow-up diagnostic mammogram of both breasts in 1 year.
== END | disposition home or self-care (01) ==
LOC: RADMAMWWP 13:00
PROVIDERS: ATTEND Radiology Radiation Oncology
DX: D05.12 Intraductal carcinoma in situ of left breast (principal); Z92.3 Personal history of irradiation
CPT/HCPCS: 77066

== ENCOUNTER → 2020-05-18 | Outpatient (CLI) | payer MEDICARE, OTHER ==
[2020-05-18 15:05] LABS: Basophils # (A) 0.1 k/uL (0-0.2); Basophils % (A) 1 %; Eosinophils # (A) 0.3 k/uL (0-0.7); Eosinophils % (A) 4 %; HCT 41.7 % (34.0-46.0); HGB 13.3 gm/dL (11.4-16.0); Lymphocytes # (A) 1.6 k/uL (1.0-4.8); Lymphocytes % (A) 24 %; MCH 28.6 pg (25.0-35.0); MCHC 31.8 g/dL (31.0-37.0); MCV 89.9 fL (80.0-100.0); Mean Platelet Volume 7.5; Monocytes # (A) 0.3 k/uL (0-1.0); Monocytes % (A) 5 %; Neutrophils % (A) 63 %; Platelet Count 250 k/uL (150-450); RBC 4.63 m/uL (3.80-5.40); RDW 14.4 % (11.5-15.5); WBC 6.4 k/uL (3.8-10.6)
== END | disposition home or self-care (01) ==
LOC: LABWHC1 14:21
PROVIDERS: ATTEND Physician Assistant Medical
DX: L40.0 Psoriasis vulgaris (principal)
CPT/HCPCS: 36415; 82565; 84450; 84460; 84520; 85025

== ENCOUNTER → 2020-09-27 | Outpatient (CLI) | payer MEDICARE, OTHER ==
[2020-09-27 14:51] LABS: Basophils # (A) 0.1 k/uL (0-0.2); Basophils % (A) 1 %; Eosinophils # (A) 0.2 k/uL (0-0.7); Eosinophils % (A) 3 %; HCT 40.2 % (34.0-46.0); HGB 13.4 gm/dL (11.4-16.0); Lymphocytes # (A) 1.5 k/uL (1.0-4.8); Lymphocytes % (A) 26 %; MCH 29.7 pg (25.0-35.0); MCHC 33.2 g/dL (31.0-37.0); MCV 89.3 fL (80.0-100.0); Mean Platelet Volume 7.1; Monocytes # (A) 0.2 k/uL (0-1.0); Monocytes % (A) 4 %; Neutrophils # (A) 3.7 k/uL (1.3-7.7); Neutrophils % (A) 64 %; Platelet Count 279 k/uL (150-450); RBC 4.51 m/uL (3.80-5.40); RDW 15.2 % (11.5-15.5); WBC 5.8 k/uL (3.8-10.6)
[2020-09-27 19:10] LABS: ALT 22 U/L (8-44); AST 20 U/L (13-35)
== END | disposition home or self-care (01) ==
LOC: LABWHC1 13:27
PROVIDERS: ATTEND Physician Assistant Medical
DX: L40.0 Psoriasis vulgaris (principal)
CPT/HCPCS: 36415; 84450; 84460; 85025

== ENCOUNTER → 2021-01-05 | Outpatient (CLI) | payer MEDICARE, OTHER ==
--- NOTE | 2021-01-05 15:24 | BD ---
EXAMINATION TYPE: Axial Bone Density DATE OF EXAM: 01/05/2021 COMPARISON: NONE CLINICAL HISTORY: Height: 5 FT 4 IN Weight: 230 FRAX RISK QUESTIONS: Alcohol (3 or more units per day): NO Family History (Parent hip fracture): NO Glucocorticoids (More than 3mos): NO (Ex: prednisone, prednisolone, methylprednisolone, dexamethasone, and hydrocortisone). History of Fracture in Adulthood: YES Secondary Osteoporosis: 1. Type 1 Diabetes: NO 2. Hyperthyroidism: NO 3. Menopause before 45: NO 4. Malnutrition: NO 5. Chronic liver disease: NO Rheumatoid Arthritis: NO Current Tobacco Use: NO RISK FACTORS HISTORY OF: Surgery to Spine/Hip(right/left)/Wrist (right/left): NO Family History of Osteoporosis: NO Active: NO Diet low in dairy products/other sources of calcium: NO Postmenopausal woman: AGE 50 Take estrogen and/or progesterone medications: NONE Lost more than 2 inches in height since high school: NO MEDICATIONS: Additional Medications: METHOTREXATE,PRILOSEC, FOLIC ACID, ARIMEDEX,ANXIETY MEDS NEEDED, SABELLA, Additional History: BILATERAL CARPAL TUNNEL SURG, BREAST CANCER 2017 RADIATION EXAM MEASUREMENTS: Bone mineral densitometry was performed using the [employer] System. Bone mineral density as measured about the Lumbar spine is: ----- L1-L4(G/cm2): 1.209 T Score Values are as follows: ----- L2: 0.2 ----- L3: 0.0 ----- L4: 0.9 ----- L1-L4: 0.2 Bone mineral density has: DECREASED -3.9 % since study of: 2018 Bone mineral density about the R hip (g/cm2): 0.864 Bone mineral density about the L hip (g/cm2): 0.783 T Score values are as follows: -----R Neck: -1.3 -----L Neck: -1.8 -----R Total: -0.3 -----L Total: -0.6 Bone mineral density has: DECREASED -3.2 % since study of: 2018 IMPRESSION: Osteopenia (T Score between -2.5 and -1). There is slightly increased risk of fracture and the patient may be considered for treatment. Re-Screen 2-5 years. NOTE: T-SCORE=SD OF THE YOUNG ADULT MEAN.
== END | disposition home or self-care (01) ==
LOC: RADBDWWP 12:57
PROVIDERS: ATTEND Internal Medicine Hematology & Oncology
DX: M85.80 Other specified disorders of bone density and structure, unspecified site (principal)
CPT/HCPCS: 77080

== ENCOUNTER → 2021-03-11 | Outpatient (CLI) | payer MEDICARE, OTHER ==
[~2021-03-11] MED LIST: DOBUTamine DRIP for NUC MED 500 MG in DEXTROSE/WATER 1 250ML.BAG IV PRN
--- NOTE | 2021-03-11 11:54 | ECHOS ---
STRESS ECHOCARDIOGRAM DATE OF SERVICE: 03/11/2021 LUMASON: @@ Vial INDICATIONS: Dyspnea. MEDICATIONS: @@ BASELINE HEART RATE: @@ BASELINE BLOOD PRESSURE: @@ MAXIMUM HEART RATE: @@ MAXIMUM BLOOD PRESSURE: @@ 85% MPHR: @@ 100% MPHR: @@ METS: @@ MAXIMUM STAGE REACHED: @@ TOTAL EXERCISE TIME: @@ RESULTS: Baseline EKG shows sinus rhythm, normal axis, normal intervals. Patient was given intravenous dobutamine over a period of 11 minutes as per protocol. Did not have chest pain or diagnostic ST-segment depression. Baseline EKG shows sinus rhythm, normal axis, normal intervals. Baseline echo shows normal left ventricular size, wall motion and systolic function. Post dobutamine infusion there is normal hyperdynamic response of all segments of myocardium noted. Endocardial visualization was enhanced by using Lumason contrast. ERICKA / ALYSSA: [id number] /
== END | disposition home or self-care (01) ==
LOC: RADNMMAIN 09:07
PROVIDERS: ATTEND Family Medicine
DX: R06.00 Dyspnea, unspecified (principal)
CPT/HCPCS: C8930; Q9950; 93351

== ENCOUNTER → 2021-03-24 | Outpatient (CLI) | payer MEDICARE, OTHER ==
--- NOTE | 2021-03-25 10:12 | MM ---
Reason for exam: additional evaluation requested from prior study. Last mammogram was performed 1 year ago. History: Patient is postmenopausal and has history of breast cancer at age 57. Family history of breast cancer in maternal grandmother at age 45. Malignant MG pre op loc each addl LT of the left breast, September 18, 2017. Malignant MG pre op needle loc LT of the left breast, September 18, 2017. Lumpectomy of the left breast, September 18, 2017. Malignant MG stereo VAD BX LT of the left breast, August 24, 2017. Taking antineoplastic for 2 years beginning at age 57. Physical Findings: Nurse did not find any significant physical abnormalities on exam. MG 3D Diag Mammo W/Cad CHEN Bilateral CC and MLO view(s) were taken. Prior study comparison: March 12, 2020, bilateral MG diagnostic mammo w CAD CHEN. January 01, 2019, bilateral MG diagnostic mammo w CAD CHEN. There are scattered fibroglandular densities. Left post operative change similar to prior. These results were verbally communicated with the patient and result sheet given to the patient on 03/24/21. ASSESSMENT: Benign, BI-RAD 2 RECOMMENDATION: Follow-up diagnostic mammogram of both breasts in 1 year.
== END | disposition home or self-care (01) ==
LOC: RADMAMWWP 14:17
PROVIDERS: ATTEND Radiology Radiation Oncology
DX: N64.89 Other specified disorders of breast (principal); Z78.0 Asymptomatic menopausal state; Z80.3 Family history of malignant neoplasm of breast; Z85.3 Personal history of malignant neoplasm of breast
CPT/HCPCS: 77066; G0279; 77062

== ENCOUNTER → 2021-06-06 | Outpatient (CLI) | payer MEDICARE, OTHER ==
[2021-06-06 18:47] LABS: Basophils # (A) 0.05 X 10*3/uL (0.00-0.10); Basophils % (A) 0.9 %; Eosinophils # (A) 0.18 X 10*3/uL (0.04-0.35); Eosinophils % (A) 3.2 %; HCT 37.5 % (37.2-46.3); HGB 12.2 g/dL (12.0-15.0); Lymphocytes % (A) 23.1 %; MCH 27.9 pg (27.0-32.0); MCHC 32.5 g/dL (32.0-37.0); MCV 85.6 fL (80.0-97.0); Mean Platelet Volume 10.4 fL (9.5-12.2); Monocytes # (A) 0.65 X 10*3/uL (0.20-1.00); Monocytes % (A) 11.5 %; Neutrophils # (A) 3.43 X 10*3/uL (1.80-7.70); Neutrophils % (A) 60.9 %; Platelet Count 285 X 10*3/uL (140-440); RBC 4.38 X 10*6/uL (4.10-5.20); RDW 16.1 % (11.5-14.5); WBC 5.63 X 10*3/uL (4.50-10.00)
[2021-06-06 21:26] LABS: African American GFR (CKD) 69.9 (60.0-200.0); Non-African American GFR(CKD) 60.3 (60.0-200.0)
== END | disposition home or self-care (01) ==
LOC: LABWHC1 14:33
PROVIDERS: ATTEND Physician Assistant Medical
DX: L40.0 Psoriasis vulgaris (principal)
CPT/HCPCS: 36415; 82565; 84450; 84460; 84520; 85025

== ENCOUNTER → 2021-11-07 | Outpatient (CLI) | payer MEDICARE, OTHER ==
[2021-11-07 18:59] LABS: Basophils # (A) 0.06 X 10*3/uL (0.00-0.10); Eosinophils # (A) 0.22 X 10*3/uL (0.04-0.35); Eosinophils % (A) 3.5 %; HCT 38.3 % (37.2-46.3); HGB 12.1 g/dL (12.0-15.0); Lymphocytes # (A) 1.63 X 10*3/uL (0.90-5.00); Lymphocytes % (A) 25.8 %; MCH 26.8 pg (27.0-32.0); MCHC 31.6 g/dL (32.0-37.0); MCV 84.9 fL (80.0-97.0); Mean Platelet Volume 10.2 fL (9.5-12.2); Monocytes # (A) 0.58 X 10*3/uL (0.20-1.00); Monocytes % (A) 9.2 %; Neutrophils % (A) 60.2 %; Platelet Count 233 X 10*3/uL (140-440); RBC 4.51 X 10*6/uL (4.10-5.20); RDW 16.9 % (11.5-14.5); WBC 6.31 X 10*3/uL (4.50-10.00)
[2021-11-07 22:17] LABS: ALT 18 U/L (8-44); AST 13 U/L (13-35)
== END | disposition home or self-care (01) ==
LOC: LABWHC1 12:54
PROVIDERS: ATTEND Physician Assistant Medical
DX: L40.0 Psoriasis vulgaris (principal)
CPT/HCPCS: 36415; 84450; 84460; 85025

== ENCOUNTER → 2022-03-27 | Outpatient (CLI) | payer MEDICARE, OTHER ==
--- NOTE | 2022-03-27 15:55 | MM ---
Reason for Exam: Hx of breast cancer, conservation therapy. Last screening mammogram was performed 12 month(s) ago. Patient History: Menarche at age 11. First Full-Term at age 16. Postmenopausal. Breast cancer, left, age 57. Previous chest radiation therapy at age 57. 09/18/2017, Lumpectomy on the Left side. 09/18/2017, Malignant Core Biopsy on the left side. 09/18/2017, Malignant Core Biopsy on the left side. 08/24/2017, Malignant Core Biopsy on the left side. Maternal grandmother had breast cancer, age 45. Prior Study Comparison: 12/26/2011 Screening Mammogram, [facility]. 07/06/2015 Screening Mammogram, [facility]. 07/31/2017 Screening Mammogram, [facility]. 08/02/2017 Left Screening Mammogram, [facility]. 10/08/2017 Left Diagnostic Ultrasound, [facility]. 03/22/2018 Left Diagnostic Ultrasound, [facility]. 01/01/2019 Bilateral Diagnostic Mammogram, [facility]. 01/21/2019 Bilateral Diagnostic Ultrasound, [facility]. 03/12/2020 Bilateral Diagnostic Mammogram, [facility]. 03/24/2021 Bilateral Diagnostic Mammogram, [facility]. Tissue Density: There are scattered fibroglandular densities. Findings: Analyzed By CAD. Right breast is larger than the left. Postsurgical distortion is present which appears stable to the left breast. No significant interval changes are evident. Overall Assessment: Benign, BI-RAD 2 Management: Screening Mammogram of both breasts in 1 year. A clinical breast exam by your physician is recommended on an annual basis and results should be correlated with mammographic findings. This exam should not preclude additional follow-up of suspicious palpable abnormalities. Results were given to the patient verbally at the time of exam. Patient should continue monthly self breast exam. Electronically signed and approved by: Shailesh Page D.O. Radiologis
== END | disposition home or self-care (01) ==
LOC: RADMAMWWP 14:11
PROVIDERS: ATTEND Internal Medicine Hematology & Oncology
DX: R92.8 Other abnormal and inconclusive findings on diagnostic imaging of breast (principal); Z78.0 Asymptomatic menopausal state; Z85.3 Personal history of malignant neoplasm of breast
CPT/HCPCS: 77066; G0279; 77062

== ENCOUNTER → 2022-05-02 | Outpatient (CLI) | payer MEDICARE, OTHER ==
[2022-05-02 18:40] LABS: African American GFR (CKD) 69.4 (60.0-200.0); Blood Urea Nitrogen 15.1 mg/dL (9.0-27.0); Non-African American GFR(CKD) 59.9 (60.0-200.0)
[2022-05-02 19:21] LABS: Basophils # (A) 0.07 X 10*3/uL (0.00-0.10); Basophils % (A) 1.5 %; Eosinophils # (A) 0.23 X 10*3/uL (0.04-0.35); Eosinophils % (A) 4.9 %; HCT 38.5 % (37.2-46.3); HGB 12.1 g/dL (12.0-15.0); Immature Grans, Automated 0.2 %; Lymphocytes # (A) 1.25 X 10*3/uL (0.90-5.00); Lymphocytes % (A) 26.5 %; MCH 26.6 pg (27.0-32.0); MCHC 31.4 g/dL (32.0-37.0); MCV 84.6 fL (80.0-97.0); Mean Platelet Volume 10.4 fL (9.5-12.2); Monocytes # (A) 0.51 X 10*3/uL (0.20-1.00); Monocytes % (A) 10.8 %; NRBC Per 100 WBC 0 /100 WBCS (0.0-0.0); Neutrophils # (A) 2.64 X 10*3/uL (1.80-7.70); Neutrophils % (A) 56.1 %; Platelet Count 277 X 10*3/uL (140-440); RBC 4.55 X 10*6/uL (4.10-5.20); RDW 16.6 % (11.5-14.5); WBC 4.71 X 10*3/uL (4.50-10.00)
== END | disposition home or self-care (01) ==
LOC: LABWHC1 10:46
PROVIDERS: ATTEND Physician Assistant Medical
DX: L40.0 Psoriasis vulgaris (principal)
CPT/HCPCS: 36415; 82565; 84450; 84460; 84520; 85025

== ENCOUNTER → 2022-10-31 | Outpatient (CLI) | payer MEDICARE, OTHER ==
[2022-10-31 18:25] LABS: Basophils # (A) 0.08 X 10*3/uL (0.00-0.10); Basophils % (A) 1.5 %; Eosinophils # (A) 0.14 X 10*3/uL (0.04-0.35); Eosinophils % (A) 2.7 %; HCT 38.8 % (37.2-46.3); HGB 12.3 g/dL (12.0-15.0); Immature Grans, Automated 0.2 %; Lymphocytes # (A) 1.52 X 10*3/uL (0.90-5.00); Lymphocytes % (A) 29.1 %; MCH 27.3 pg (27.0-32.0); MCHC 31.7 g/dL (32.0-37.0); Mean Platelet Volume 9.8 fL (9.5-12.2); Monocytes # (A) 0.51 X 10*3/uL (0.20-1.00); Monocytes % (A) 9.8 %; NRBC Per 100 WBC 0 /100 WBCS (0.0-0.0); Neutrophils # (A) 2.97 X 10*3/uL (1.80-7.70); Neutrophils % (A) 56.7 %; Platelet Count 267 X 10*3/uL (140-440); RBC 4.51 X 10*6/uL (4.10-5.20); RDW 16.9 % (11.5-14.5); WBC 5.23 X 10*3/uL (4.50-10.00)
[2022-10-31 20:18] LABS: African American GFR (CKD) 76.7 (60.0-200.0); Blood Urea Nitrogen 19.2 mg/dL (9.0-27.0); Non-African American GFR(CKD) 66.2 (60.0-200.0)
== END | disposition home or self-care (01) ==
LOC: LABWHC1 13:06
PROVIDERS: ATTEND Physician Assistant Medical
DX: L40.0 Psoriasis vulgaris (principal)
CPT/HCPCS: 36415; 82565; 84450; 84460; 84520; 85025

== ENCOUNTER → 2023-02-21 | Outpatient (CLI) | payer MEDICARE, OTHER ==
--- NOTE | 2023-02-21 16:05 | BD ---
EXAMINATION TYPE: Axial Bone Density DATE OF EXAM: 02/21/2023 CLINICAL HISTORY: 62 years old Female. ICD-10 CODE: M85.88 OTH DISRD OF BONE DENSITY AND STRUCTURE, OT Height: 64in Weight: 211lb FRAX RISK QUESTIONS: History of Fracture in Adulthood: yes Secondary Osteoporosis: RISK FACTORS HISTORY OF: Active: yes Postmenopausal woman: yes MEDICATIONS: Additional Medications: Diabetic med, Prilosec, estrogen deborah Additional History: breast cancer 5 years ago with radiation, foot fx EXAM MEASUREMENTS: Bone mineral densitometry was performed using the [employer] System. Bone mineral density as measured about the Lumbar spine is: ----- L1-L4(G/cm2): 1.216 T Score Values are as follows: ----- L1: -1.2 ----- L2: -0.1 ----- L3: 0.2 ----- L4: 1.4 ----- L1-L4: 0.3 Z Score Values are as follows: ----- L1: -0.8 ----- L2: 0.3 ----- L3: 0.7 ----- L4: 1.9 ----- L1-L4: 0.8 Bone mineral density has: Increased 0.6% since study of: 01-05-2021 Bone mineral density about the R hip (g/cm2): 0.954 Bone mineral density about the L hip (g/cm2): 0.905 T Score values are as follows: -----R Neck: -1.6 -----L Neck: -1.7 -----R Total: -0.4 -----L Total: -0.8 Z Score values are as follows: -----R Neck: -0.9 -----L Neck: -0.9 -----R Total: 0.0 -----L Total: -0.4 Bone mineral density has: Decreased -1.9% since study of: 01-05-2021 FRAX%s: The graph provided illustrates a 14.3% chance for a major osteoporotic fx and a 1.6% chance f or the hips probability for fx in 10 years time. IMPRESSION: Osteopenia (T Score between -2.5 and -1). There is slightly increased risk of fracture and the patient may be considered for treatment. Re-Screen 2-5 years. NOTE: T-SCORE=SD OF THE YOUNG ADULT MEAN.
== END | disposition home or self-care (01) ==
LOC: RADBDWWP 14:07
PROVIDERS: ATTEND Internal Medicine Hematology & Oncology
DX: M85.88 Other specified disorders of bone density and structure, other site (principal); D05.12 Intraductal carcinoma in situ of left breast; Z85.3 Personal history of malignant neoplasm of breast; L02.91 Cutaneous abscess, unspecified; Z71.3 Dietary counseling and surveillance
CPT/HCPCS: 77080

== ENCOUNTER → 2023-07-26 | Outpatient (CLI) | payer MEDICARE, OTHER ==
[2023-07-26 22:32] LABS: Basophils # (A) 0.07 X 10*3/uL (0.00-0.10); Eosinophils # (A) 0.26 X 10*3/uL (0.04-0.35); Eosinophils % (A) 3.7 %; HCT 39.5 % (37.2-46.3); HGB 12.5 d/dL (12.0-15.0); Lymphocytes # (A) 1.78 X 10*3/uL (0.90-5.00); Lymphocytes % (A) 25.1 %; MCH 26.9 pg (27.0-32.0); MCHC 31.6 d/dL (32.0-37.0); MCV 84.9 FL (80.0-97.0); Mean Platelet Volume 10.9 FL (9.5-12.2); Monocytes # (A) 0.53 X 10*3/uL (0.20-1.00); Monocytes % (A) 7.5 %; NRBC Per 100 WBC 0 X 10*3/uL (0.00-0.01); Neutrophils # (A) 4.42 X 10*3/uL (1.80-7.70); Neutrophils % (A) 62.4 %; Platelet Count 267 X 10*3/uL (140-440); RBC 4.65 X 10*6/uL (4.10-5.20); RDW 15.7 % (11.5-14.5); WBC 7.08 X 10*3/uL (4.50-10.00)
[2023-07-26 23:20] LABS: ALT 14 U/L (8-44); AST 14 U/L (13-35)
[2023-07-26 23:55] LABS: Hepatitis B Surface AB- Quant 3.5 mIU/mL
[2023-07-26 23:57] LABS: Hepatitis B Surface Antigen Nonreactive; Hepatitis C IgG Antibody Nonreactive
== END | disposition home or self-care (01) ==
LOC: LABWHC1 13:49
DX: L40.0 Psoriasis vulgaris (principal); L40.8 Other psoriasis
CPT/HCPCS: 36415; 82565; 84450; 84460; 85025; 86480; 86704; 86706; 86803; 87340

== ENCOUNTER → 2023-08-23 | Outpatient (CLI) | payer MEDICARE, OTHER ==
--- NOTE | 2023-08-26 16:33 | MM ---
Reason for Exam: Screening (asymptomatic). Last mammogram was performed 1 year(s) and 5 month(s) ago. Patient History: Menarche at age 11. First Full-Term at age 16. Postmenopausal. Breast cancer, left, age 57. Previous chest radiation therapy at age 57. 09/18/2017, Lumpectomy on the Left side. 09/18/2017, Malignant Core Biopsy on the left side. 09/18/2017, Malignant Core Biopsy on the left side. 08/24/2017, Malignant Core Biopsy on the left side. 2018, Radiation Therapy on the left side. Maternal grandmother had breast cancer, age 45. Prior Study Comparison: 03/12/2020 Bilateral Diagnostic Mammogram, [facility]. 03/24/2021 Bilateral Diagnostic Mammogram, [facility]. 03/27/2022 Bilateral MG 3D diag mammo w/cad CHEN, [facility]. Tissue Density: There are scattered fibroglandular densities. Findings: Analyzed By CAD. Postsurgical and posttreatment change left breast. Unchanged microcalcifications posteriorly on the right. There is no suspicious group of microcalcifications or new suspicious mass in either breast. Overall Assessment: Benign, BI-RAD 2 Management: Screening Mammogram of both breasts in 1 year. . Patient should continue monthly self-breast exams. A clinical breast exam by your physician is recommended on an annual basis. This exam should not preclude additional follow-up of suspicious palpable abnormalities. Electronically signed and approved by: Yanet Hinds M.D. Radiologist
== END | disposition home or self-care (01) ==
LOC: RADMAMWWP 12:38
PROVIDERS: ATTEND Internal Medicine Hematology & Oncology
DX: Z12.31 Encounter for screening mammogram for malignant neoplasm of breast (principal); Z78.0 Asymptomatic menopausal state; Z80.3 Family history of malignant neoplasm of breast
CPT/HCPCS: 77063; 77067

== ENCOUNTER → 2023-09-19 | Outpatient (CLI) | payer MEDICARE, OTHER ==
[2023-09-19 19:17] LABS: ALT 14 U/L (8-44); AST 15 U/L (13-35); Blood Urea Nitrogen 15.3 mg/dL (9.0-27.0)
[2023-09-19 19:22] LABS: Basophils # (A) 0.06 X 10*3/uL (0.00-0.10); Eosinophils # (A) 0.18 X 10*3/uL (0.04-0.35); Eosinophils % (A) 3.1 %; HCT 40.3 % (37.2-46.3); Immature Grans, Automated 0 %; Lymphocytes # (A) 2.14 X 10*3/uL (0.90-5.00); Lymphocytes % (A) 37.2 %; MCH 27.1 pg (27.0-32.0); MCHC 32.3 g/dL (32.0-37.0); Monocytes # (A) 0.41 X 10*3/uL (0.20-1.00); Monocytes % (A) 7.1 %; NRBC Per 100 WBC 0 X 10*3/uL (0.00-0.01); Neutrophils # (A) 2.97 X 10*3/uL (1.80-7.70); Neutrophils % (A) 51.6 %; Platelet Count 278 X 10*3/uL (140-440); RDW 15.1 % (11.5-14.5); WBC 5.76 X 10*3/uL (4.50-10.00)
== END | disposition home or self-care (01) ==
LOC: LABWHC1 12:52
PROVIDERS: ATTEND Dermatology MOHS-Micrographic Surgery
DX: L40.0 Psoriasis vulgaris (principal)
CPT/HCPCS: 36415; 82565; 84450; 84460; 84520; 85025

== ENCOUNTER → 2024-03-13 | Outpatient (CLI) | payer MEDICARE, OTHER ==
[2024-03-13 19:29] LABS: ALT 11 U/L (8-44); AST 13 U/L (13-35); Blood Urea Nitrogen 17.8 mg/dL (9.0-27.0)
[2024-03-13 19:44] LABS: Basophils # (A) 0.07 X 10*3/uL (0.00-0.10); Basophils % (A) 1.3 %; Eosinophils # (A) 0.17 X 10*3/uL (0.04-0.35); Eosinophils % (A) 3.2 %; HCT 38.6 % (37.2-46.3); HGB 12.5 g/dL (12.0-15.0); Lymphocytes # (A) 2.23 X 10*3/uL (0.90-5.00); Lymphocytes % (A) 41.8 %; MCH 27.6 pg (27.0-32.0); MCHC 32.4 g/dL (32.0-37.0); MCV 85.2 FL (80.0-97.0); Mean Platelet Volume 10.1 FL (9.5-12.2); Monocytes # (A) 0.52 X 10*3/uL (0.20-1.00); Monocytes % (A) 9.7 %; NRBC Per 100 WBC 0 X 10*3/uL (0.00-0.01); Neutrophils # (A) 2.34 X 10*3/uL (1.80-7.70); Neutrophils % (A) 43.8 %; Platelet Count 280 X 10*3/uL (140-440); RBC 4.53 X 10*6/uL (4.10-5.20); WBC 5.34 X 10*3/uL (4.50-10.00)
== END | disposition home or self-care (01) ==
LOC: LABWHC1 15:58
PROVIDERS: ATTEND Physician Assistant Medical
DX: L40.0 Psoriasis vulgaris (principal); L40.8 Other psoriasis
CPT/HCPCS: 36415; 82565; 84450; 84460; 84520; 85025

== ENCOUNTER → 2024-06-26 | Outpatient (CLI) | payer MEDICARE, OTHER ==
--- NOTE | 2024-06-26 09:18 | US ---
EXAMINATION TYPE: US transvaginal DATE OF EXAM: 06/26/2024 COMPARISON: 12/19/2018 CLINICAL INDICATION: Female, 64 years old with history of R10.9 UNSPECIFIED ABDOMINAL PAIN; Pelvic pa in. family history of uterine cancer. history of . episode of vaginal bleeding a few months ago TECHNIQUE: Transvaginal (TV). Date of LMP: unknown EXAM MEASUREMENTS: Uterus: 5.0 x 2.4 x 3.6 cm Endometrial Stripe: 0.3 cm Right Ovary: unable to visualize Left Ovary: unable to visualize 1. Uterus: Anteverted. limited evaluation, appears heterogeneous 2. Endometrium: appears wnl as visualized 3. Right Ovary: Obscured by overlying bowel gas 4. Left Ovary: Obscured by overlying bowel gas 5. Bilateral Adnexa: appears wnl 6. Posterior cul-de-sac: appears wnl IMPRESSION: 1. No evidence for acute process. 2. Endometrium within normal limits for thickness. [facility], , 06/26/2024 9:16 AM
== END | disposition home or self-care (01) ==
LOC: RADUSWWP 08:29
PROVIDERS: ATTEND Family Medicine
DX: R10.9 Unspecified abdominal pain
CPT/HCPCS: 76830

== ENCOUNTER → 2024-12-04 | Outpatient (CLI) | payer MEDICARE ==
[2024-12-05 02:22] LABS: Basophils # (A) 0.06 X 10*3/uL (0.00-0.10); Eosinophils # (A) 0.22 X 10*3/uL (0.04-0.35); Eosinophils % (A) 3.6 %; HCT 38.7 % (37.2-46.3); HGB 12.2 g/dL (12.0-15.0); Lymphocytes # (A) 2.39 X 10*3/uL (0.90-5.00); MCH 27.4 pg (27.0-32.0); MCHC 31.5 g/dL (32.0-37.0); MCV 86.8 FL (80.0-97.0); Mean Platelet Volume 9.7 FL (9.5-12.2); Monocytes # (A) 0.41 X 10*3/uL (0.20-1.00); Monocytes % (A) 6.7 %; NRBC Per 100 WBC 0 X 10*3/uL (0.00-0.01); Neutrophils # (A) 3.04 X 10*3/uL (1.80-7.70); Neutrophils % (A) 49.5 %; Platelet Count 251 X 10*3/uL (140-440); RBC 4.46 X 10*6/uL (4.10-5.20); RDW 15.9 % (11.5-14.5); WBC 6.13 X 10*3/uL (4.50-10.00)
[2024-12-05 03:05] LABS: ALT 19 U/L (8-44); AST 19 U/L (13-35); Blood Urea Nitrogen 17.4 mg/dL (9.0-27.0)
== END | disposition home or self-care (01) ==
LOC: LABWHC1 16:24
PROVIDERS: ATTEND Dermatology MOHS-Micrographic Surgery
DX: L40.0 Psoriasis vulgaris (principal); Z79.899 Other long term (current) drug therapy
CPT/HCPCS: 36415; 82565; 84450; 84460; 84520; 85025; 86480

== ENCOUNTER → 2024-12-04 | Outpatient (CLI) | payer MEDICARE ==
--- NOTE | 2024-12-05 05:53 | US ---
EXAMINATION TYPE: US kidneys/renal and bladder DATE OF EXAM: 12/04/2024 COMPARISON: NONE CLINICAL INDICATION: Female, 64 years old with history of R31.9 HEMATURIA; Pt states hematuria x 1 ye ar TECHNIQUE: Grayscale imaging of the bilateral kidneys and urinary bladder: FINDINGS: EXAM MEASUREMENTS: Right Kidney: 11.2 x 4.8 x 4.3 cm Left Kidney: 11.3 x 5.2 x 4.7 cm Right Kidney: No hydronephrosis or masses seen Left Kidney: No hydronephrosis or masses seen Bladder: wnl Bilateral Jets seen: Yes There is no evidence for hydronephrosis at this point in time. No nephrolithiasis is seen. No sarah s are identified. The urinary bladder is anechoic. IMPRESSION: Unremarkable study. Source of hematuria not identified. If symptoms persist further inves tigation with CT urogram would be warranted. [facility], Workstation: [employer], 12/05/2024 5:50 AM
--- NOTE | 2024-12-05 05:54 | US ---
EXAMINATION TYPE: US pelvic complete DATE OF EXAM: 12/04/2024 COMPARISON: us CLINICAL INDICATION: Female, 64 years old with history of R31.9 HEMATURIA; Pt states hematuria x 1 ye ar TECHNIQUE: Transabdominal (TA). Transabdominal grayscale sonographic images of the pelvis were acquired. Doppler imaging: Not performed. FINDINGS: EXAM MEASUREMENTS: Uterus: 6.7 x 2.5 x 2.9 cm Endometrial Stripe: 0.4 cm Right Ovary: Not visualized due to bowel gas. Left Ovary: Not visualized due to bowel gas. 1. Uterus: Anteverted wnl 2. Endometrium: wnl 3. Right Ovary: Obscured by overlying bowel gas 4. Left Ovary: Obscured by overlying bowel gas 5. Bilateral Adnexa: wnl 6. Posterior cul-de-sac: wnl Neither ovary clearly seen but no suspicious adnexal masses noted. IMPRESSION: No abnormal thickening of the endometrium. [facility], , 12/05/2024 5:52 AM
== END | disposition home or self-care (01) ==
LOC: RADUSWWP 15:35
PROVIDERS: ATTEND Family Medicine
DX: R31.9 Hematuria, unspecified (principal)
CPT/HCPCS: 76770; 76856

== ENCOUNTER → 2025-04-20 | Outpatient (CLI) | payer MEDICARE ==
--- NOTE | 2025-04-20 14:12 | MM ---
Reason for Exam: Screening (asymptomatic). Last mammogram was performed 1 year(s) and 8 month(s) ago. Patient History: Menarche at age 11. First Full-Term at age 16. Postmenopausal. Breast cancer, left, age 57. Previous chest radiation therapy at age 57. 09/18/2017, Lumpectomy on the Left side. 09/18/2017, Malignant Core Biopsy on the left side. 09/18/2017, Malignant Core Biopsy on the left side. 08/24/2017, Malignant Core Biopsy on the left side. 2018, Radiation Therapy on the left side. Maternal grandmother had breast cancer, age 45. Mother had breast cancer, age 80. Prior Study Comparison: 03/24/2021 Bilateral Diagnostic Mammogram, [facility]. 03/27/2022 Bilateral MG 3D diag mammo w/cad CHEN, [facility]. 08/23/2023 Bilateral MG 3D screening mammo w/cad, [facility]. Tissue Density: The breasts are heterogeneously dense, which may obscure small masses. Findings: Analyzed By CAD. Stable lumpectomy changes left breast. There is no suspicious group of microcalcifications or new suspicious mass in either breast. Overall Assessment: Benign, BI-RAD 2 Management: Screening Mammogram of both breasts in 1 year. . Patient should continue monthly self-breast exams. A clinical breast exam by your physician is recommended on an annual basis. This exam should not preclude additional follow-up of suspicious palpable abnormalities. Note on Winter scores and lifetime risk: 1. A Winter score greater than 3% is considered moderate risk. If this is the case, consider specialist referral to assess eligibility for a risk reducing agent. 2. If overall lifetime risk for the development of breast cancer is 20% or higher, the patient may qualify for future screening with alternating mammogram and breast MRI. [facility], , 04/20/2025 2:09 PM. Electronically signed and approved by: Lawrence Loera M.D. Radiologis
== END | disposition home or self-care (01) ==
LOC: RADMAMWWP 12:32
PROVIDERS: ATTEND Family Medicine
DX: Z12.31 Encounter for screening mammogram for malignant neoplasm of breast (principal); R92.333 Mammographic heterogeneous density, bilateral breasts; Z78.0 Asymptomatic menopausal state; Z80.3 Family history of malignant neoplasm of breast; Z92.3 Personal history of irradiation; Z85.3 Personal history of malignant neoplasm of breast
CPT/HCPCS: 77063; 77067